=== PATIENT | female | born 1995 | race Two or more races ===

== ENCOUNTER 2024-11-23 14:24 | Outpatient (AMB) | payer MEDICAID, SELFPAY ==
[2024-11-23 14:46] VITALS: BP 134/93; PULSE 101; RESP 18; TEMP 37.1; O2SAT 98; BMI 40.1
--- NOTE | 2024-11-23 14:46 | OBCLNT_ITS ---
Vital Signs 11/23/24 14:46 Height 1.52 m Height Method Stated Weight 92.703 kg Weight Measurement Method Standing Scale BMI 40.1 BP 134/93 H Blood Pressure Source Automatic Cuff Blood Pressure Location Left Upper Arm Position Sitting Respiration 18 Pulse 101 H Pulse Source Monitor Temp 98.7 F Temp Source Oral Pulse Oximetry (%) 98 Oxygen Delivery Method Room Air Allergies/Home Meds Allergies & Medications Allergies No Known Allergies Allergy (Verified 11/23/24 14:48) Medication Reconciliation ondansetron 4 mg disintegrating tablet 4 mg PO Q6H PRN nausea and vomiting 30 days #120 tabs 11/23/24 [Rx] vitamins no.68-iron 28 mg-folate no.6 1 mg-dha 400 mg capsule (Prenate Enhance) 1 cap PO QDAY 90 days #90 caps 11/23/24 [Rx] Intake Visit Data Collection New Patient or Established: Established Patient (seen at [facility] within 3 years) Reason for Visit:: INITIAL CARE Seen by Clinical Staff ONLY (RN/MA): No Baseball Club Manager Required: No Do You Feel Safe at Home: Yes Authorities Contacted: N/A PCP or OBGYN visit in last 3 months: Yes Hx Now: Yes Are you currently on any form of Control: No Last menstrual period: 09/18/24 Pain Present Currently: No Pain Scale Used: [place]/Numerical Pain scale:: 0 Smoking Status Smoking Status: Never smoker Questionnaires Covid-19 Vaccine Questionnaire Has patient been vacinated for Covid-19 Have you been vacinated for Covid-19: No PHQ-9 PHQ-2 Over the last 2 weeks, how often have you been bothered by any of the following problems? 1. Little interest or pleasure in doing things: not at all 2. Feeling down, depressed, or hopeless: not at all Total score: 0 PHQ-9 3. Trouble falling or staying asleep, or sleeping too much: Not at all 4. Feeling tired or having little energy: Not at all 5. Poor appetite or overeating: Not at all 6. Feeling bad about yourself - or that you are a failure or have let yourself or your family down: Not at all 7. Trouble concentrating on things, such as reading the newspaper or watching television: Not at all 8. Moving or speaking so slowly that other people could have noticed? - Or the opposite - being so fidgety or restless that you have been moving around a lot more than usual: not at all 9. Thoughts that you would be better off or of hurting yourself in some way: Not at all Total score: 0 Source: Developed by Drs. Jason Jeffery, Amy Cali, Pernell Gerber and colleagues, with an educational panchito from [employer]. 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 at Home: Yes Past Medical History Past Medical History Have you ever been diagnosed with any of the following: Neurological Problems Cerebrovascular Accident (CVA): No Transient Ischemic Attacks (TIA): No Dementia: No Alzheimer's Disease: No Parkinson's Disease: No Brain Tumor: No Guillain-[place] Syndrome: No Cardiology Problems Myocardial Infarction: No Cardiac Arrhythmia: No Atrial Fibrillation: No Angina: No Congestive Heart Failure: No Respiratory Problems Chronic Obstructive Pulmonary Disease (COPD): No Asthma: No Bronchitis: No Emphysema: No Pneumonia: No Pulmonary Fibrosis: No Hx Cough: No Cough: No Wheezing: No Chest Deformities: No Smoking: No Smoking Cessation Counseling: No Smoking Exposure: No Tobacco Use: No Stomache/Intestinal Problems Liver Cancer: No Hepatitis: No Colorectal Cancer: No Obesity: Yes Genital/Urinary Problems Renal Disease: No Reproductive Problems Breast Cancer: No Endometriosis: No Pelvic Inflammatory Disease: No Previous Pregnancies: Yes (G1 C1 SEP 10 due to macrosomia) Uterine Prolapse: No Musculoskeletal Problems Bone Cancer: No Carpal Tunnel Syndrome: No Head,Eye,Nose,Throat Problems Cataracts: No Glaucoma: No Retinal Detachment: No Macular Degeneration: No Chronic Ear Infections: Yes Eye Prosthesis: No Endocrine Problems Diabetes Mellitus Type 1: No Diabetes Mellitus Type 2: No Blood Problems Sickle Cell Disease: No Other Problems Hospitalization: No Down Syndrome: No Developmental Delay: No Shingles: No Falls: No Blood Transfusions: No Blood Transfusion Reaction: No Anesthesia Reactions: No Organ Transplant: No Chemotherapy: No Radiation Therapy: No Hyperbaric Therapy: No MRSA: No VRSA: No Vancomycin-Resistant Enterococci: No Human Immunodeficiency Virus (HIV): No Chicken Pox: No Measles: No Mumps: No Rubella (Kazakh Measles): No Pertussis: No Clostridium Difficile: No Cancer: No Cervical Cancer: No Lung Cancer: No Surgical History Carotid Endarterectomy: No Coronary Artery Bypass Graft: No Valve Replacement: No Hysterectomy: No Pacemaker: No Thyroidectomy: No History of Present Illness HPI Sharon Veloz, a 29-year-old , presents to establish care. Her last menstrual period was on September 18, consistent with an estimated gestational age of 9 weeks and 3 days. She reports experiencing nausea throughout the day but denies vomiting. The patient is currently taking vitamins. Patient has a significant obstetrical history of one previous delivery in 2023, which was complicated by readmission through the emergency room for headache. She subsequently developed congestive heart failure and was treated for acute hypoxic respiratory failure secondary to fluid overload, possible heart failure, and possible cardiomyopathy. Currently, she denies any shortness of breath or other complaints related to her previous complications. OB Initial Visit Menstrual History Menstrual reliability: definite Flow: normal Menstrual regularity: regular Monthly: Yes Age at menarche: 13 On control pills at conception: No Date of positive home test: 10/18/24 Associated symptoms (LMP): Reports nausea Other symptoms: HEADACHES OB History : 2 Para: 1 # of Living Children: 1 Delivery History 1st : Child's name: THOMAS date: 09/11/23 sex: female Gestational age at delivery (weeks): 40 Delivery type: History of depression before or after : No Infection History & Risk Evaluation History of STDs: none Genetic Screening & History Genetic Screening/Teratology Counseling - Includes patient, baby's father, or anyone in either family with: 1. Patient's age 35 years or older as of estimated date of delivery: No 2. Thalassemia ([place] Citizen, Slovenian, Mediterranean, or Background); MCV less than 80: No 3. Neural Tube Defect (Meningomyelocele, Spina Bifida, or Anencephaly): No 4. Congenital Heart Defect: No 5. Down Syndrome: No 6. Jon-Sachs (Ashkenazi Baptism, Cajun, [place]ic [place]): No 7. Olena Disease (Ashkenazi Baptism): No 8. Familial Dysautonomia (Ashkenazi Baptism): No 9. Sickle Cell Disease or Trait (): No 10. Hemophilia or other blood disorders: No 11. Muscular Dystrophy: No 12. Cystic Fibrosis: No 13. [place]'s Chorea: No 14. Mental Retardation/Autism: No 15. Other inherited genetic or chromosomal disorder: No 16. Maternal Metabolic Disorder (EG,TYPE 1 Diabetes, PKU): No 17. Patient or baby's father had a child with defects not listed above: No 18. Recurrent loss or a stillbirth: No 19. Medications (including supplements, vitamins, herbs or otc drugs)/illicit/recreational drugs/alcohol since last menstrual period: No 20. Any other: No Infection History 1. Live with someone with TB or exposed to TB: No 2. Rash or viral illness since last menstrual period: No 3. Hepatitis B,C: No Other (see comments) Source: [employer] Review of Systems Review of Systems Systems Reviewed: All systems reviewed, normal except as documented Gastrointestinal Gastrointestinal: Reports nausea Exam General Limitations: no limitations General Appearance: alert, in no apparent distress, comfortable, cooperative, healthy appearing, well developed and well groomed Chest Chest inspection: Present normal inspection and symmetric chest wall rise Abdominal Abdominal exam: Present soft and normal bowel sounds Neuro Neurological exam: Present alert, oriented X3 and CN II-XII intact Psych Psychiatric exam: Present normal affect and normal mood Assessment & Plan Diagnosis / Problem List (1) Maternal care for low transverse scar from previous delivery: Status: Acute Assessment and Plan: 29-year-old at 8 weeks 1 day gestation by ultrasound (LMP 09/18/2024). Viable intrauterine confirmed with strong heartbeat visualized. Patient reports nausea without vomiting. History of previous delivery in 2023 complicated by readmission for headache, congestive heart failure, acute hypoxic respiratory failure secondary to fluid overload, and pos sible cardiomyopathy. - vitamin prescription - Antiemetic prescription for as-needed use - Initial lab orders - Formal ultrasound scheduled for better measurements - Follow-up appointment in 2 weeks - Next appointment scheduled for 11/29/2024 at 1:00 PM (2) History of poor outcome: Status: Acute (3) Cardiomyopathy: Status: Acute Office Procedures OB Clinic LOC & Office Proc's Nursing/Assessment Patient Status: Established Patient OB Clinic Nursing Assessment: Medication Reconciliation, Update PMH in EMR and Vital Signs OB Clinic Coordination of Care: Complex Care and Chronic Disease 1-5, Consent,records obtained, informed consent, Education Simp Pt/Fam, Lab and Imaging orders and Staff clarify orders Established Patient Charge Established Patient Point Assignment: 100 Established Patient Point Charge: EP Level 3 (80-115) Bedside Ultrasounds US Transabdominal >14 weeks at bedside: Yes
== END 2024-11-23 14:59 | disposition home or self-care (01) ==
LOC: HODSOBC 14:24
PROVIDERS: Supervising Provider Obstetrics & Gynecology; Visit Provider Obstetrics & Gynecology
DX: O09.291 Supervision of pregnancy with other poor reproductive or obstetric history, first trimester (principal); Z3A.08 8 weeks gestation of pregnancy; O34.211 Maternal care for low transverse scar from previous cesarean delivery; O99.411 Diseases of the circulatory system complicating pregnancy, first trimester; I42.9 Cardiomyopathy, unspecified; Z87.59 Personal history of other complications of pregnancy, childbirth and the puerperium
CPT/HCPCS: 76805; 99213; G0463

== ENCOUNTER → 2024-12-02 | Outpatient (CLI) | payer MEDICAID, SELFPAY ==
--- NOTE | 2024-12-02 15:52 | XR_ITS ---
Examination: Complete OB ultrasound, less than 14 weeks, transabdominal Date and time of exam: December 02, 2024 1614 hrs. Indications: Pelvic cramping today Technique: Obstetrical ultrasound images less than 14 weeks performed via transabdominal imaging Findings: A normal shaped single intrauterine gestation is present in the uterus. Uterine body mass 3.8 x 3.8 cm Uterus 11.8 cm pole 3.9 cm corresponding to 10 weeks 5 day gestational age Cardiac motion 173 BPM Ultrasonographic survey of visible and placental structures unremarkable. Amniotic fluid volume appears appropriate for this estimated gestational age. Right ovary 2.7 cm arterial flow small follicles Left ovary 2.4 cm arterial flow 15 mm follicle Impression: Viable intrauterine gestation 10 weeks 5 days.
== END | disposition home or self-care (01) ==
PROVIDERS: PCP Family Medicine; Referring Provider Obstetrics & Gynecology; Visit Provider Obstetrics & Gynecology
DX: O20.0 Threatened abortion (principal); Z3A.10 10 weeks gestation of pregnancy
CPT/HCPCS: 76801

== ENCOUNTER 2024-12-22 10:39 | Outpatient (AMB) | payer MEDICAID, SELFPAY ==
--- NOTE | 2024-12-22 10:49 | OBCLNT_ITS ---
Vital Signs 12/22/24 10:50 Height 1.52 m Height Method Stated Weight 91.342 kg Weight Measurement Method Standing Scale BMI 39.5 BP 128/83 Blood Pressure Source Automatic Cuff Blood Pressure Location Left Upper Arm Position Sitting Respiration 18 Pulse 98 Pulse Source Monitor Temp 97.2 F Temp Source Oral Pulse Oximetry (%) 97 Oxygen Delivery Method Room Air Allergies/Home Meds Allergies & Medications Allergies No Known Allergies Allergy (Verified 12/22/24 10:51) Medication Reconciliation ondansetron 4 mg disintegrating tablet 4 mg PO Q6H PRN nausea and vomiting 30 days #120 tabs 11/23/24 [Rx Confirmed 12/22/24] vitamins no.68-iron 28 mg-folate no.6 1 mg-dha 400 mg capsule (Prenate Enhance) 1 cap PO QDAY 90 days #90 caps 11/23/24 [Rx Confirmed 12/22/24] Intake Visit Data Collection New Patient or Established: Established Patient (seen at [facility] within 3 years) Reason for Visit:: obc Seen by Clinical Staff ONLY (RN/MA): No Product Support Engineer Required: No Do You Feel Safe at Home: Yes Authorities Contacted: N/A PCP or OBGYN visit in last 3 months: Yes Date of Last PCP or OBGYN visit: 11/23/24 Hx Now: Yes Are you currently on any form of Control: No Pain Present Currently: No Pain Scale Used: [place]/Numerical Pain scale:: 0 Smoking Status Smoking Status: Never smoker Questionnaires Covid-19 Vaccine Questionnaire Has patient been vacinated for Covid-19 Have you been vacinated for Covid-19: Yes PHQ-9 PHQ-2 Over the last 2 weeks, how often have you been bothered by any of the following problems? 1. Little interest or pleasure in doing things: not at all 2. Feeling down, depressed, or hopeless: not at all Total score: 0 PHQ-9 3. Trouble falling or staying asleep, or sleeping too much: Not at all 4. Feeling tired or having little energy: Not at all 5. Poor appetite or overeating: Not at all 6. Feeling bad about yourself - or that you are a failure or have let yourself or your family down: Not at all 7. Trouble concentrating on things, such as reading the newspaper or watching television: Not at all 8. Moving or speaking so slowly that other people could have noticed? - Or the opposite - being so fidgety or restless that you have been moving around a lot more than usual: not at all 9. Thoughts that you would be better off or of hurting yourself in some way: Not at all Total score: 0 If you checked off any problems, how difficult have these problems made it for you to do your work, take care of things at home, or get along with other people?: not difficult at all Source: Developed by Drs. Jason Jeffery, Amy Cali, Pernell Gerber and colleagues, with an educational panchito from [employer]. Depression screen completed yes Social History Living Situation History Marital Status: Lives With: Family Housing: House Housing Other:: pt lives with mom Tobacco History Smoking Status: Never smoker Second Hand Smoke Exposure: No Alcohol History Alcohol Intake: Never Alcohol Intake Frequency: holidays/special occasions only Domestic Abuse History Do You Feel Safe at Home: Yes Past Medical History Past Medical History Have you ever been diagnosed with any of the following: Neurological Problems Cerebrovascular Accident (CVA): No Transient Ischemic Attacks (TIA): No Dementia: No Alzheimer's Disease: No Parkinson's Disease: No Brain Tumor: No Guillain-[place] Syndrome: No Cardiology Problems Myocardial Infarction: No Cardiac Arrhythmia: No Atrial Fibrillation: No Angina: No Congestive Heart Failure: No Respiratory Problems Chronic Obstructive Pulmonary Disease (COPD): No Asthma: No Bronchitis: No Emphysema: No Pneumonia: No Pulmonary Fibrosis: No Hx Cough: No Cough: No Wheezing: No Chest Deformities: No Smoking: No Smoking Cessation Counseling: No Smoking Exposure: No Tobacco Use: No Stomache/Intestinal Problems Liver Cancer: No Hepatitis: No Colorectal Cancer: No Obesity: Yes Genital/Urinary Problems Renal Disease: No Reproductive Problems Breast Cancer: No Endometriosis: No Pelvic Inflammatory Disease: No Previous Pregnancies: Yes (G1 C1 SEP 10 due to macrosomia) Uterine Prolapse: No Musculoskeletal Problems Bone Cancer: No Carpal Tunnel Syndrome: No Head,Eye,Nose,Throat Problems Cataracts: No Glaucoma: No Retinal Detachment: No Macular Degeneration: No Chronic Ear Infections: Yes Eye Prosthesis: No Endocrine Problems Diabetes Mellitus Type 1: No Diabetes Mellitus Type 2: No Blood Problems Sickle Cell Disease: No Other Problems Hospitalization: No Down Syndrome: No Developmental Delay: No Shingles: No Falls: No Blood Transfusions: No Blood Transfusion Reaction: No Anesthesia Reactions: No Organ Transplant: No Chemotherapy: No Radiation Therapy: No Hyperbaric Therapy: No MRSA: No VRSA: No Vancomycin-Resistant Enterococci: No Human Immunodeficiency Virus (HIV): No Chicken Pox: No Measles: No Mumps: No Rubella ([place] Measles): No Pertussis: No Clostridium Difficile: No Cancer: No Cervical Cancer: No Lung Cancer: No Surgical History Carotid Endarterectomy: No Coronary Artery Bypass Graft: No Valve Replacement: No Hysterectomy: No Pacemaker: No Thyroidectomy: No Review of Systems Gastrointestinal Gastrointestinal: Reports nausea Care OB Visit Log OB Flowsheet Initial Weight: Not Recorded Date -?-?-?-?-?-?-?-?-?-?-?-?- EGA Weight Edema CTX Effacement BP Fundal ht Pres Dilation Effacement Station Visit Note Alb Glu FHR Mov 12/22/24 -?-?-?-?-?-?-?-?-?-?-?-?- 13w 4d 91.342 kg absent absent 128/83 14 unknown Doing well today, no sab complaints. VS stable, lungs clear, no c/o difficult resp. NOPT not done. MFM sono pending. NIPT,SMA and CF today, sab precaution discussed. advised patient to call [facility] for appointment, RTC 4 week with OB for care Doing well today, no sab com plaints. VS stable, lungs clear, no c/o difficult resp. NOPT not done. MFM sono pending. NIPT,SMA and CF today, sab precaution discussed. advised patient to call [facility] for appointment, RTC 4 week with OB for care. Labs reviewed Doing well today, no sab com plaints. preg verification VS stable, lungs clear, no c/o difficult resp. NOPT not done. MFM sono pending. NIPT,SMA and CF today, sab precaution discussed. advised patient to call [facility] for appointment, RTC 4 week with OB for care. Labs reviewed 1 46 DEENA Calculator Estimated Delivery Date Method Current WG Current Estimate 06/25/25 LMP (Certain) 13w 4d Assessment & Plan Diagnosis / Problem List (1) Encounter for supervision of high risk in second trimester, antepartum: Status: Acute Plan preg verification, sab precaution, redraw NIPT,SMA and CF, call [facility] to schedule MFM appointment, rtc 4 week with OB for care Additional Plan Follow Up: 4 Weeks ([facility]) Office Procedures OB Clinic LOC & Office Proc's Nursing/Assessment Patient Status: Established Patient OB Clinic Nursing Assessment: BP Monitoring, Medication Reconciliation, Update PMH in EMR and Vital Signs OB Clinic Coordination of Care: Consent,records obtained, informed consent, Education Simp Pt/Fam, Lab and Imaging orders and Staff clarify orders Special Needs: Heart tones Established Patient Charge Established Patient Point Assignment: 120 Established Patient Point Charge: EP Level 4 (120-155)
[2024-12-22 10:50] VITALS: BP 128/83; PULSE 98; RESP 18; TEMP 36.2; O2SAT 97; BMI 39.5
== END 2024-12-22 11:00 | disposition home or self-care (01) ==
LOC: HODSOBC 10:39
PROVIDERS: PCP Obstetrics & Gynecology; Referring Provider Obstetrics & Gynecology; Supervising Provider Obstetrics & Gynecology; Visit Provider Obstetrics & Gynecology
DX: O09.291 Supervision of pregnancy with other poor reproductive or obstetric history, first trimester (principal); O34.219 Maternal care for unspecified type scar from previous cesarean delivery; Z3A.13 13 weeks gestation of pregnancy; Z87.59 Personal history of other complications of pregnancy, childbirth and the puerperium
CPT/HCPCS: 81001; 99214; G0463

== ENCOUNTER 2025-01-28 09:12 | Outpatient (AMB) | payer MEDICAID, SELFPAY ==
[2025-01-28 09:21] VITALS: BP 131/85; PULSE 84; RESP 17; TEMP 36.7; O2SAT 98; BMI 40.5
--- NOTE | 2025-01-28 09:21 | OBCLNT_ITS ---
Vital Signs 01/28/25 09:21 Height 1.52 m Height Method Stated Weight 93.61 kg Weight Measurement Method Standing Scale BMI 40.5 BP 131/85 H Blood Pressure Source Automatic Cuff Blood Pressure Location Right Upper Arm Position Sitting Respiration 17 Pulse 84 Pulse Source Monitor Temp 98.0 F Temp Source Temporal Artery Scan Pulse Oximetry (%) 98 Oxygen Delivery Method Room Air Allergies/Home Meds Allergies & Medications Allergies No Known Allergies Allergy (Verified 01/28/25 09:23) Medication Reconciliation ondansetron 4 mg disintegrating tablet 4 mg PO Q6H PRN nausea and vomiting 30 days #120 tabs 11/23/24 [Rx Confirmed 01/28/25] vitamins no.68-iron 28 mg-folate no.6 1 mg-dha 400 mg capsule (Prenate Enhance) 1 cap PO QDAY 90 days #90 caps 11/23/24 [Rx Confirmed 01/28/25] Intake Visit Data Collection New Patient or Established: Established Patient (seen at [facility] within 3 years) Reason for Visit:: OBC Seen by Clinical Staff ONLY (RN/MA): No Char Belt Operator Required: No Do You Feel Safe at Home: Yes Authorities Contacted: N/A PCP or OBGYN visit in last 3 months: Yes Date of Last PCP or OBGYN visit: 12/22/24 Hx Now: Yes Are you currently on any form of Control: No Pain Present Currently: No Pain Scale Used: [place]/Numerical Pain scale:: 0 Smoking Status Smoking Status: Never smoker Questionnaires Covid-19 Vaccine Questionnaire Has patient been vacinated for Covid-19 Have you been vacinated for Covid-19: No PHQ-9 PHQ-2 Over the last 2 weeks, how often have you been bothered by any of the following problems? 1. Little interest or pleasure in doing things: not at all 2. Feeling down, depressed, or hopeless: not at all Total score: 0 PHQ-9 3. Trouble falling or staying asleep, or sleeping too much: Not at all 4. Feeling tired or having little energy: Not at all 5. Poor appetite or overeating: Not at all 6. Feeling bad about yourself - or that you are a failure or have let yourself or your family down: Not at all 7. Trouble concentrating on things, such as reading the newspaper or watching television: Not at all 8. Moving or speaking so slowly that other people could have noticed? - Or the opposite - being so fidgety or restless that you have been moving around a lot more than usual: not at all 9. Thoughts that you would be better off or of hurting yourself in some way: Not at all Total score: 0 If you checked off any problems, how difficult have these problems made it for you to do your work, take care of things at home, or get along with other people?: not difficult at all Source: Developed by Drs. Jason Jeffery, Amy Cali, Pernell Gerber and colleagues, with an educational panchito from [employer]. 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 Patient has a history of possible cardiomyopathy after her previous . Denies DELGADILLO, VC, and epigastric pain. - Meggan Veloz is a 29-year-old at 18 weeks and 6 days gestation presenting for routine visit. - Patient reports feeling movements here and there - Provider notes these should become more prominent in the next 2 weeks - Denies current nausea or vomiting - Denies any heart symptoms, shortness of breath, or weakness - History of possible cardiomyopathy after previous - Previously referred to cardiology and maternal- medicine for evaluation - Patient confirms taking vitamins as prescribed - Upcoming appointment scheduled for 20-week ultrasound on February 08, 2025 Care OB Visit Log OB Flowsheet Initial Weight: Not Recorded Date -?-?-?-?-?-?-?-?-?-?-?-?- EGA Weight BP Alb Glu CTX Pres Fundal ht FHR Mov Dilation Station Effacement Hx Notes Visit Note 12/22/24 -?-?-?-?-?-?-?-?-?-?-?-?- 13w 4d 91.342 kg 128/83 absent unknown 14 146 Doing well today, no sab complaints. VS stable, lungs clear, no c/o difficult resp. NOPT not done. MFM sono pending. NIPT,SMA and CF today, sab precaution discussed. advised patient to call [facility] for appointment, RTC 4 week with OB for care Doing well today, no sab com plaints. VS stable, lungs clear, no c/o difficult resp. NOPT not done. MFM sono pending. NIPT,SMA and CF today, sab precaution d iscussed. advised patient to call [facility] for appointment, RTC 4 week with OB for care. Labs reviewed Doing well today, no sab com plaints. preg verification VS stable, lungs clear, no c/o difficult resp. NOPT not done. MFM sono pending. NIPT,SMA and CF today, sab precaution discussed. advised patient to call [facility] for appointment, RTC 4 week with OB for care. Labs reviewed 01/28/25 -?-?-?-?-?-?-?-?-?-?-?-?- 18w 6d 93.61 kg 131/85 at 18w6d, presents for routine care. Reports movement ?here and there.? No DELGADILLO/VC/epigastric pain. Denies SOB, weakness, or cardiac symptoms. History of possible cardiomyopathy; previously referred to cardiology and [facility]. Currently asymptomatic. labs from 11/19/24 within normal limits. NIPT redrawn. FHT 150 bpm. Anatomy ultrasound scheduled for 02/08/25. Plan: Redraw NIPT and send to lab. Print proof of . Encourage movement monitoring. Continue vitamins. Follow-up after anatomy scan. Routine care to continue. heart ton es: 150 bpm. Laboratory, Imaging, and Diagnostic Test Results - Date: 11/19/2024 - Hepatitis B: Negative - Hepatitis C: Negative - RPR: Non-reactive - Rubella: Immune - Blood group: O-positive - Antibody screen: Negative - HIV: Negative - Gonorrhea: Negative - Chlamydia: Negative - Ultrasound (10 weeks 5 days): Confirms gestational age and viability DEENA Calculator Estimated Delivery Date Method Current WG Current Estimate 06/25/25 LMP (Certain) 19w 4d Exam General General Appearance: alert, in no apparent distress and healthy appearing Head Head exam: atraumatic Neck Neck exam: Present normal inspection and trachea midline Chest Chest inspection: Present normal inspection and symmetric chest wall rise External exam: Present normal external exam; Absent tenderness Neuro Neurological exam: Present oriented X3 Psych Psychiatric exam: Present normal affect and normal mood Office Procedures OB Clinic LOC & Office Proc's Nursing/Assessment Patient Status: Established Patient OB Clinic Nursing Assessment: Medication Reconciliation, Update PMH in EMR and Vital Signs OB Clinic Coordination of Care: Complex Care and Chronic Disease 1-5, Consent,records obtained, informed consent, Education Simp Pt/Fam and Staff clarify orders Special Needs: Heart tones Established Patient Charge Established Patient Point Assignment: 115 Established Patient Point Charge: EP Level 3 (80-115) Assessment & Plan Diagnosis / Problem List (1) Encounter for supervision of high risk in second trimester, antepartum: Status: Acute (2) Cardiomyopathy: Status: Acute (3) History of poor outcome: Status: Acute (4) Maternal care for low transverse scar from previous delivery: Status: Acute Plan Problem List - , 18 weeks and 6 days - Possible cardiomyopathy Assessment 29-year-old at 18 weeks 6 days gestation presenting for routine visit. Patient has a history of possible cardiomyopathy after previous . Initial labs from 11/19/2024 show hepatitis B and C negative, RPR non-reactive, rubella immune, blood type O positive with negative antibody screen, HIV negative, and gonorrhea/chlamydia negative. NiPT was redrawn due to unreported results. Ultrasound at 10 weeks 5 days confirmed gestational age and viability. Patient reports feeling movement here and there and denies current nausea, vomiting, shortness of breath, or weakness. heart rate auscultated at 150 bpm, which is within normal limits. Plan - Provide new lab order for genetic testing (NiPT) - Print proof of - Attend scheduled 20-week ultrasound at [facility] on February 08, 2025 - Continue vitamins - Follow up in 4 weeks This format is not applicable for this patient visit. The patient, Meggan Veloz, is 18 weeks and 6 days , which is less than 20 weeks gestation. Additionally, this appears to be a routine visit, not an initial visit. The provided format is intended for patients with gestational age greater than 20 weeks who are not on their initial visit.
== END 2025-01-28 09:57 | disposition home or self-care (01) ==
LOC: HODSOBC 09:12
PROVIDERS: PCP Obstetrics & Gynecology; Referring Provider Obstetrics & Gynecology; Supervising Provider Obstetrics & Gynecology; Visit Provider Obstetrics & Gynecology
DX: O09.292 Supervision of pregnancy with other poor reproductive or obstetric history, second trimester (principal); O34.211 Maternal care for low transverse scar from previous cesarean delivery; O09.892 Supervision of other high risk pregnancies, second trimester; O99.412 Diseases of the circulatory system complicating pregnancy, second trimester; Z3A.18 18 weeks gestation of pregnancy; I42.9 Cardiomyopathy, unspecified
CPT/HCPCS: 99213; G0463

== ENCOUNTER 2025-02-28 09:14 | Outpatient (AMB) | payer MEDICAID, SELFPAY ==
[2025-02-28 09:24] VITALS: BP 130/84; PULSE 79; RESP 17; TEMP 36.7; O2SAT 98; BMI 40.1
--- NOTE | 2025-02-28 09:24 | OBCLNT_ITS ---
Vital Signs 02/28/25 09:24 Height 1.55 m Height Method Measured Weight 96.388 kg Weight Measurement Method Standing Scale BMI 40.1 BP 130/84 Blood Pressure Source Automatic Cuff Blood Pressure Location Right Upper Arm Position Sitting Respiration 17 Pulse 79 Pulse Source Monitor Temp 98.0 F Temp Source Temporal Artery Scan Pulse Oximetry (%) 98 Oxygen Delivery Method Room Air Allergies/Home Meds Allergies & Medications Allergies No Known Allergies Allergy (Verified 02/28/25 09:25) Medication Reconciliation vitamins no.68-iron 28 mg-folate no.6 1 mg-dha 400 mg capsule (Prenate Enhance) 1 cap PO QDAY 90 days #90 caps 11/23/24 [Rx Confirmed 02/28/25] Intake Visit Data Collection New Patient or Established: Established Patient (seen at [facility] within 3 years) Reason for Visit:: OBC Consent obtained for Telemed Visit: No Seen by Clinical Staff ONLY (RN/MA): No Health Care Sanitary Technician Required: No Do You Feel Safe at Home: Yes Authorities Contacted: N/A PCP or OBGYN visit in last 3 months: Yes Date of Last PCP or OBGYN visit: 01/28/25 Hx Now: Yes Are you currently on any form of Control: No Pain Present Currently: No Pain Scale Used: [place]/Numerical Pain scale:: 0 Smoking Status Smoking Status: Never smoker Questionnaires Covid-19 Vaccine Questionnaire Has patient been vacinated for Covid-19 Have you been vacinated for Covid-19: No PHQ-9 PHQ-2 Over the last 2 weeks, how often have you been bothered by any of the following problems? 1. Little interest or pleasure in doing things: not at all PHQ-9 8. Moving or speaking so slowly that other people could have noticed? - Or the opposite - being so fidgety or restless that you have been moving around a lot more than usual: not at all Source: Developed by Drs. Jason Jeffery, Amy Cali, Pernell Gerebr and colleagues, with an educational panchito from [employer]. 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 Past Medical History: No Hx Neurological Disorders, No Hx Breast Cancer, No Hx Cardiac Disorders, No Hx Cancer, No Hx Blood Disorders, Yes Hx Gastrointestinal Disorders, No Hx Renal Disease, No Hx Diabetes Mellitus Type 1, No Hx Diabetes Mellitus Type 2, No Hx Tubal Ligation and No Hx Hysterectomy Care OB Visit Log OB Flowsheet Initial Weight: Not Recorded Date -?-?-?-?-?-?-?-?-?-?-?-?- EGA Weight BP Alb Glu CTX Pres Fundal ht FHR Mov Dilation Station Effacement Hx Notes Visit Note 12/22/24 -?-?-?-?-?-?-?-?-?-?-?-?- 13w 4d 91.342 kg 128/83 absent unknown 14 146 Doing well today, no sab complaints. VS stable, lungs clear, no c/o difficult resp. NOPT not done. MFM sono pending. NIPT,SMA and CF today, sab precaution discussed. advised patient to call [facility] for appointment, RTC 4 week with OB for care Doing well today, no sab com plaints. VS stable, lungs clear, no c/o difficult resp. NOPT not done. MFM sono pending. NIPT,SMA and CF today, sab precaution discussed. advised patient to call [facility] for appointment, RTC 4 week with OB for care. Labs reviewed Doing well today, no sab com plaints. preg verification VS stable, lungs clear, no c/o difficult resp. NOPT not done. MFM sono pending. NIPT,SMA and CF today, sab precaution discussed. advised patient to call [facility] for appointment, RTC 4 week with OB for care. Labs reviewed 01/28/25 -?-?-?-?-?-?-?-?-?-?-?-?- 18w 6d 93.61 kg 131/85 at 18w6d, presents for routine care. Reports movement ?here and there.? No DELGADILLO/VC/epigastric pain. Denies SOB, weakness, or cardiac symptoms. History of possible cardi omyopathy; previously referred to cardiology and [facility]. Currently asymptomatic. labs from 11/19/24 within normal limits. NIPT redrawn. FHT 150 bpm. Anatomy ultrasound scheduled for 02/08/25. Plan: Redraw NIPT and send to lab. Print proof of . Encourage movement monitoring. Continue vitamins. Follow-up after anatomy scan. Routine care to continue. heart ton es: 150 bpm. Laboratory, Imaging, and Diagnostic Test Results - Date: 11/19/2024 - Hepatitis B: Negative - Hepatitis C: Negative - RPR: Non-reactive - Rubella: Immune - Blood group: O-positive - Antibody screen: Negative - HIV: Negative - Gonorrhea: Negative - Chlamydia: Negative - Ultrasound (10 weeks 5 days): Confirms gestational age and viability 02/28/25 -?-?-?-?-?-?-?-?-?-?-?-?- 23w 2d 96.388 kg 130/84 absent unknown 24 135 active , 23w2d. 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 Alex 11/26). FHR 135, no CTX, reports FM. Plan: f/u with cardiology, glucose test today, MFM f/u at [facility] 03/10, routine OB f/u in 4 weeks. DEENA Calculator Estimated Delivery Date Method Current WG Current Estimate 06/25/25 LMP (Certain) 23w 6d Office Procedures OB Clinic LOC & Office Proc's Nursing/Assessment Patient Status: Established Patient OB Clinic Nursing Assessment: Medication Reconciliation, Update PMH in EMR and Vital Signs OB Clinic Coordination of Care: Complex Care and Chronic Disease 1-5, Consent,records obtained, informed consent, Education Simp Pt/Fam and 4+ Authorizations needed Special Needs: Heart tones Established Patient Charge Established Patient Point Assignment: 130 Established Patient Point Charge: EP Level 4 (120-155) Assessment & Plan Diagnosis / Problem List (1) Encounter for supervision of high risk in second trimester, antepartum: Status: Acute (2) Cardiomyopathy: Status: Acute (3) History of poor outcome: Status: Acute (4) Maternal care for low transverse scar from previous delivery: Status: Acute Plan Problem List - , 23 weeks and 2 days - Peripartum cardiomyopathy Assessment 29-year-old at 23 weeks 2 days gestation presenting for care. Patient has a significant history of possible cardiomyopathy during her last admission, necessitating cardiology and maternal- medicine referrals for co-management. Cardiology consultation is still pending since the referral on November 26. heart rate auscultated at 135 bpm, which is within normal limits. Patient denies contractions and reports movement. Glucose tolerance test is due today for gestational diabetes screening. Plan - Follow up with cardiology - referral sent to Dr. David Alex's office, awaiting appointment - Complete glucose test for gestational diabetes screening - Attend scheduled appointment at [facility] on the - Return for follow-up in 4 weeks
== END 2025-02-28 10:36 | disposition home or self-care (01) ==
LOC: HODSOBC 09:14
PROVIDERS: PCP Obstetrics & Gynecology; Referring Provider Obstetrics & Gynecology; Supervising Provider Obstetrics & Gynecology; Visit Provider Obstetrics & Gynecology
DX: O09.892 Supervision of other high risk pregnancies, second trimester (principal); O90.3 Peripartum cardiomyopathy; O09.292 Supervision of pregnancy with other poor reproductive or obstetric history, second trimester; O34.211 Maternal care for low transverse scar from previous cesarean delivery; Z3A.23 23 weeks gestation of pregnancy; Z87.59 Personal history of other complications of pregnancy, childbirth and the puerperium
CPT/HCPCS: 99214; G0463

== ENCOUNTER 2025-03-29 14:06 | Outpatient (AMB) | payer MEDICAID, SELFPAY ==
[2025-03-29 14:48] VITALS: BP 130/87; PULSE 94; RESP 17; TEMP 36.5; O2SAT 97; BMI 40.8
--- NOTE | 2025-03-29 14:48 | AMB.OBVISIT ---
Vital Signs 03/29/25 14:48 Height 1.55 m Height Method Measured Weight 98.033 kg Weight Measurement Method Standing Scale BMI 40.8 BP 130/87 H Blood Pressure Source Automatic Cuff Blood Pressure Location Right Upper Arm Position Sitting Respiration 17 Pulse 94 Pulse Source Monitor Temp 97.7 F Temp Source Temporal Artery Scan Pulse Oximetry (%) 97 Oxygen Delivery Method Room Air Allergies/Home Meds Allergies & Medications Allergies No Known Allergies Allergy (Verified 03/29/25 14:48) Medication Reconciliation vitamins no.68-iron 28 mg-folate no.6 1 mg-dha 400 mg capsule (Prenate Enhance) 1 cap PO QDAY 90 days #90 caps 11/23/24 [Rx Confirmed 03/29/25] blood sugar diagnostic (Blood Glucose Test strips) #100 ea 03/21/25 [Rx Confirmed 03/29/25] blood-glucose meter #1 ea 03/21/25 [Rx Confirmed 03/29/25] lancets 21 gauge #100 ea 03/21/25 [Rx Confirmed 03/29/25] Intake Visit Data Collection New Patient or Established: Established Patient (seen at [facility] within 3 years) Reason for Visit:: [facility] Consent obtained for Telemed Visit: No Seen by Clinical Staff ONLY (RN/MA): No Echo Vascular Technologist Required: No Do You Feel Safe at Home: Yes Authorities Contacted: N/A PCP or OBGYN visit in last 3 months: Yes Date of Last PCP or OBGYN visit: 02/28/25 Hx Now: Yes Are you currently on any form of Control: No Pain Present Currently: No Pain Scale Used: [place]/Numerical Pain scale:: 0 Smoking Status Smoking Status: Never smoker Questionnaires Covid-19 Vaccine Questionnaire Has patient been vacinated for Covid-19 Have you been vacinated for Covid-19: No PHQ-9 PHQ-2 Over the last 2 weeks, how often have you been bothered by any of the following problems? 1. Little interest or pleasure in doing things: not at all PHQ-9 3. Trouble falling or staying asleep, or sleeping too much: Not at all 4. Feeling tired or having little energy: Not at all 5. Poor appetite or overeating: Not at all 6. Feeling bad about yourself - or that you are a failure or have let yourself or your family down: Not at all 7. Trouble concentrating on things, such as reading the newspaper or watching television: Not at all 8. Moving or speaking so slowly that other people could have noticed? - Or the opposite - being so fidgety or restless that you have been moving around a lot more than usual: not at all 9. Thoughts that you would be better off or of hurting yourself in some way: Not at all If you checked off any problems, how difficult have these problems made it for you to do your work, take care of things at home, or get along with other people?: not difficult at all Source: Developed by Drs. Jason Jeffery, Amy Cali, Pernell Gerber and colleagues, with an educational panchito from [employer]. 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 VS stable, lungs clear, no c/o difficult resp. NOPT not done. MFM sono pending. NIPT,SMA and CF today, sab precaution discussed. advised patient to call [facility] for appointment, RTC 4 week with OB for care Doing well today, no sab complaints. VS stable, lungs clear, no c/o difficult resp. NOPT not done. MFM sono pending. NIPT,SMA and CF today, sab precaution discussed. advised patient to call [facility] for appointment, RTC 4 week with OB for care. Labs reviewed Doing well today, no sab complaints. preg verification VS stable, lungs clear, no c/o difficult resp. NOPT not done. MFM sono pending. NIPT,SMA and CF today, sab precaution discussed. advised patient to call [facility] for appointment, RTC 4 week with OB for care. Labs reviewed 01/28/25 <del>?</del> 18w 6d 93.61 kg 131/85 at 18w6d, presents for routine care. Reports movement ?here and there.? No DELGADILLO/VC/epigastric pain. Denies SOB, weakness, or cardiac symptoms. History of possible cardiomyopathy; previously referred to cardiology and [facility]. Currently asymptomatic. labs from 11/19/24 within normal limits. NIPT redrawn. FHT 150 bpm. Anatomy ultrasound scheduled for 02/08/25. Plan: Redraw NIPT and send to lab. Print proof of . Encourage movement monitoring. Continue vitamins. Follow-up after anatomy scan. Routine care to continue. heart tones: 150 bpm. Laboratory, Imaging, and Diagnostic Test Results - Date: 11/19/2024 - Hepatitis B: Negative - Hepatitis C: Negative - RPR: Non-reactive - Rubella: Immune - Blood group: O-positive - Antibody screen: Negative - HIV: Negative - Gonorrhea: Negative - Chlamydia: Negative - Ultrasound (10 weeks 5 days): Confirms gestational age and viability 02/28/25 <del>?</del> 23w 2d 96.388 kg 130/84 absent unknown 24 135 active , 23w2d. 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 Alex 11/26). FHR 135, no CTX, reports FM. Plan: f/u with cardiology, glucose test today, MFM f/u at [facility] 03/10, routine OB f/u in 4 weeks. DEENA Calculator Estimated Delivery Date Method Current WG Current Estimate 06/25/25 LMP (Certain) 27w 3d Office Procedures OB Clinic LOC & Office Proc's Nursing/Assessment Patient Status: Established Patient OB Clinic Nursing Assessment: Medication Reconciliation, Update PMH in EMR and Vital Signs OB Clinic Coordination of Care: Complex Care and Chronic Disease 1-5, Consent,records obtained, informed consent, Education Simp Pt/Fam and Results/Orders obtained Special Needs: Heart tones Established Patient Charge Established Patient Point Assignment: 110 Established Patient Point Charge: EP Level 3 (80-115)
== END 2025-03-29 15:42 | disposition home or self-care (01) ==
LOC: HODSOBC 14:06
PROVIDERS: PCP Obstetrics & Gynecology; Referring Provider Obstetrics & Gynecology; Supervising Provider Obstetrics & Gynecology; Visit Provider Obstetrics & Gynecology
DX: Z34.82 Encounter for supervision of other normal pregnancy, second trimester (principal); Z3A.27 27 weeks gestation of pregnancy
CPT/HCPCS: 99213; G0463

== ENCOUNTER 2025-04-12 14:50 | Outpatient (AMB) | payer MEDICAID, SELFPAY ==
[2025-04-12 15:01] VITALS: BP 134/81; PULSE 93; RESP 18; TEMP 36.2; O2SAT 98; BMI 39.9
--- NOTE | 2025-04-12 15:01 | AMB.OBVISIT ---
Vital Signs 04/12/25 15:01 Height 1.55 m Height Method Stated Weight 95.821 kg Weight Measurement Method Standing Scale BMI 39.9 BP 134/81 H Blood Pressure Source Automatic Cuff Blood Pressure Location Left Upper Arm Position Sitting Respiration 18 Pulse 93 Pulse Source Monitor Temp 97.2 F Temp Source Oral Pulse Oximetry (%) 98 Oxygen Delivery Method Room Air Allergies/Home Meds Allergies & Medications Allergies No Known Allergies Allergy (Verified 04/12/25 15:02) Medication Reconciliation vitamins no.68-iron 28 mg-folate no.6 1 mg-dha 400 mg capsule (Prenate Enhance) 1 cap PO QDAY 90 days #90 caps 11/23/24 [Rx Confirmed 04/12/25] blood sugar diagnostic (Blood Glucose Test strips) #100 ea 03/21/25 [Rx Confirmed 04/12/25] blood-glucose meter #1 ea 03/21/25 [Rx Confirmed 04/12/25] lancets 21 gauge #100 ea 03/21/25 [Rx Confirmed 04/12/25] Intake Visit Data Collection New Patient or Established: Established Patient (seen at [facility] within 3 years) Reason for Visit:: OBC Seen by Clinical Staff ONLY (RN/MA): No Steel Estimator Required: No Do You Feel Safe at Home: Yes Authorities Contacted: N/A PCP or OBGYN visit in last 3 months: Yes Date of Last PCP or OBGYN visit: 03/29/25 Hx Now: Yes Are you currently on any form of Control: No Pain Present Currently: No Pain Scale Used: [place]/Numerical Pain scale:: 0 Smoking Status Smoking Status: Never smoker Questionnaires Covid-19 Vaccine Questionnaire Has patient been vacinated for Covid-19 Have you been vacinated for Covid-19: Yes PHQ-9 PHQ-2 Over the last 2 weeks, how often have you been bothered by any of the following problems? 1. Little interest or pleasure in doing things: not at all 2. Feeling down, depressed, or hopeless: not at all Total score: 0 PHQ-9 3. Trouble falling or staying asleep, or sleeping too much: Not at all 4. Feeling tired or having little energy: Not at all 5. Poor appetite or overeating: Not at all 6. Feeling bad about yourself - or that you are a failure or have let yourself or your family down: Not at all 7. Trouble concentrating on things, such as reading the newspaper or watching television: Not at all 8. Moving or speaking so slowly that other people could have noticed? - Or the opposite - being so fidgety or restless that you have been moving around a lot more than usual: not at all 9. Thoughts that you would be better off or of hurting yourself in some way: Not at all Total score: 0 If you checked off any problems, how difficult have these problems made it for you to do your work, take care of things at home, or get along with other people?: not difficult at all Source: Developed by Drs. Jason Jeffery, Amy Cali, Pernell Gerber and colleagues, with an educational panchito from [employer]. 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: Past Medical History Past Medical History: No Hx Neurological Disorders, No Hx Breast Cancer, No Hx Cardiac Disorders, No Hx Cancer, No Hx Blood Disorders, Yes Hx Gastrointestinal Disorders, No Hx Renal Disease, No Hx Diabetes Mellitus Type 1, No Hx Diabetes Mellitus Type 2, No Hx Tubal Ligation and No Hx Hysterectomy Care OB Visit Log OB Flowsheet Initial Weight: Not Recorded Date <del>?</del> EGA Weight BP Alb Glu CTX Pres Fundal ht FHR Mov Dilation Station Effacement Hx Notes Visit Note 12/22/24 <del>?</del> 13w 4d 91.342 kg 128/83 absent unknown 14 146 Doing well today, no sab complaints. VS stable, lungs clear, no c/o difficult resp. NOPT not done. MFM sono pending. NIPT,SMA and CF today, sab precaution discussed. advised patient to call [facility] for appointment, RTC 4 week with OB for care Doing well today, no sab complaints. VS stable, lungs clear, no c/o difficult resp. NOPT not done. MFM sono pending. NIPT,SMA and CF today, sab precaution discussed. advised patient to call [facility] for appointment, RTC 4 week with OB for care. Labs reviewed Doing well today, no sab complaints. preg verification VS stable, lungs clear, no c/o difficult resp. NOPT not done. MFM sono pending. NIPT,SMA and CF today, sab precaution discussed. advised patient to call [facility] for appointment, RTC 4 week with OB for care. Labs reviewed 01/28/25 <del>?</del> 18w 6d 93.61 kg 131/85 at 18w6d, presents for routine care. Reports movement ?here and there.? No DELGADILLO/VC/epigastric pain. Denies SOB, weakness, or cardiac symptoms. History of possible cardiomyopathy; previously referred to cardiology and MFM. Currently asymptomatic. labs from 11/19/24 within normal limits. NIPT redrawn. FHT 150 bpm. Anatomy ultrasound scheduled for 02/08/25. Plan: Redraw NIPT and send to lab. Print proof of . Encourage movement monitoring. Continue vitamins. Follow-up after anatomy scan. Routine care to continue. heart tones: 150 bpm. Laboratory, Imaging, and Diagnostic Test Results - Date: 11/19/2024 - Hepatitis B: Negative - Hepatitis C: Negative - RPR: Non-reactive - Rubella: Immune - Blood group: O-positive - Antibody screen: Negative - HIV: Negative - Gonorrhea: Negative - Chlamydia: Negative - Ultrasound (10 weeks 5 days): Confirms gestational age and viability 02/28/25 <del>?</del> 23w 2d 96.388 kg 130/84 absent unknown 24 135 active , 23w2d. 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 Alex 11/26). FHR 135, no CTX, reports FM. Plan: f/u with cardiology, glucose test today, MFM f/u at [facility] 03/10, routine OB f/u in 4 weeks. 04/12/25 <del>?</del> 29w 3d 95.821 kg 134/81 absent unknown 30 140 active 29w3d with h/o suspected cardiomyopathy (EF 65%), currently ruled out by MFM, and diet-controlled GDM with well-controlled sugars; FHR 166 bpm, normal growth on 04/12 . Plan: Order CBC Alpha for anemia, stop frequent glucose checks (monitor after large/sweet meals only), initiate NSTs per MFM, expedite echo referral with Dr. Alex, RTC in 2 weeks. DEENA Calculator Estimated Delivery Date Method Current WG Current Estimate 06/25/25 LMP (Certain) 29w 5d Office Procedures OB Clinic LOC & Office Proc's Nursing/Assessment Patient Status: Established Patient OB Clinic Nursing Assessment: Medication Reconciliation, Update PMH in EMR and Vital Signs OB Clinic Coordination of Care: Education Complex Pt/Fam, Consent,records obtained, informed consent, Lab and Imaging orders, Results/Orders obtained and Staff clarify orders Special Needs: Heart tones Established Patient Charge Established Patient Point Assignment: 115 Established Patient Point Charge: EP Level 3 (80-115) Assessment & Plan Diagnosis / Problem List (1) Gestational diabetes mellitus: Status: Acute (2) Encounter for supervision of high risk in second trimester, antepartum: Status: Acute (3) Cardiomyopathy: Status: Acute
== END 2025-04-12 15:15 | disposition home or self-care (01) ==
LOC: HODSOBC 14:50
PROVIDERS: Supervising Provider Obstetrics & Gynecology; Visit Provider Obstetrics & Gynecology
DX: O09.893 Supervision of other high risk pregnancies, third trimester (principal); O24.410 Gestational diabetes mellitus in pregnancy, diet controlled; O99.413 Diseases of the circulatory system complicating pregnancy, third trimester; I42.9 Cardiomyopathy, unspecified; Z3A.29 29 weeks gestation of pregnancy
CPT/HCPCS: 99213; G0463

== ENCOUNTER 2025-04-29 13:54 | Outpatient (AMB) | payer MEDICAID, SELFPAY ==
[2025-04-29 14:15] VITALS: BP 132/83; PULSE 91; RESP 18; TEMP 36.6; O2SAT 98; BMI 39.9
--- NOTE | 2025-04-29 14:15 | OBCLNT_ITS ---
Vital Signs 04/29/25 14:15 Height 1.55 m Height Method Stated Weight 95.765 kg Weight Measurement Method Standing Scale BMI 39.9 BP 132/83 H Blood Pressure Source Automatic Cuff Blood Pressure Location Left Upper Arm Position Sitting Respiration 18 Pulse 91 Pulse Source Monitor Temp 97.8 F Temp Source Oral Pulse Oximetry (%) 98 Oxygen Delivery Method Room Air Allergies/Home Meds Allergies & Medications Allergies No Known Allergies Allergy (Verified 06/01/25 11:08) Medication Reconciliation vitamins no.68-iron 28 mg-folate no.6 1 mg-dha 400 mg capsule (Prenate Enhance) 1 cap PO QDAY 90 days #90 caps 11/23/24 [Rx Confirmed 06/01/25] blood sugar diagnostic (Blood Glucose Test strips) #100 ea 03/21/25 [Rx Confirmed 06/01/25] blood-glucose meter #1 ea 03/21/25 [Rx Confirmed 06/01/25] lancets 21 gauge #100 ea 03/21/25 [Rx Confirmed 06/01/25] blood sugar diagnostic (FreeStyle Test strips) #100 ea 04/19/25 [Rx Confirmed 06/01/25] Intake Visit Data Collection New Patient or Established: Established Patient (seen at [facility] within 3 years) Reason for Visit:: CARE Seen by Clinical Staff ONLY (RN/MA): No Uranium Processing Supervisor Required: No Do You Feel Safe at Home: Yes Authorities Contacted: N/A PCP or OBGYN visit in last 3 months: Yes Hx Now: Yes Are you currently on any form of Control: No Pain Present Currently: No Pain Scale Used: [place]/Numerical Pain scale:: 0 Smoking Status Smoking Status: Never smoker Questionnaires Covid-19 Vaccine Questionnaire Has patient been vacinated for Covid-19 Have you been vacinated for Covid-19: No PHQ-9 PHQ-2 Over the last 2 weeks, how often have you been bothered by any of the following problems? 1. Little interest or pleasure in doing things: not at all 2. Feeling down, depressed, or hopeless: not at all Total score: 0 PHQ-9 3. Trouble falling or staying asleep, or sleeping too much: Not at all 4. Feeling tired or having little energy: Not at all 5. Poor appetite or overeating: Not at all 6. Feeling bad about yourself - or that you are a failure or have let yourself or your family down: Not at all 7. Trouble concentrating on things, such as reading the newspaper or watching television: Not at all 8. Moving or speaking so slowly that other people could have noticed? - Or the opposite - being so fidgety or restless that you have been moving around a lot more than usual: not at all 9. Thoughts that you would be better off or of hurting yourself in some way: Not at all Total score: 0 Source: Developed by Drs. Jason Jeffery, Amy Cali, Pernell Gerber and colleagues, with an educational panchito from [employer]. 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: Past Medical History Past Medical History: No Hx Neurological Disorders, No Hx Breast Cancer, No Hx Cardiac Disorders, No Hx Cancer, No Hx Blood Disorders, Yes Hx Gastrointestinal Disorders, No Hx Renal Disease, No Hx Diabetes Mellitus Type 1, No Hx Diabetes Mellitus Type 2, No Hx Tubal Ligation and No Hx Hysterectomy Care OB Visit Log OB Flowsheet Initial Weight: Not Recorded Date -?-?-?-?-?-?-?-?-?-?-?-?- EGA Weight BP Alb Glu CTX Pres Fundal ht FHR Mov Dilation Station Effacement Hx Notes Visit Note 12/22/24 -?-?-?-?-?-?-?-?-?-?-?-?- 13w 4d 91.342 kg 128/83 absent unknown 14 146 Doing well today, no sab complaints. VS stable, lungs clear, no c/o difficult resp. NOPT not done. MFM sono pending. NIPT,SMA and CF today, sab precaution discussed. advised patient to call [facility] for appointment, RTC 4 week with OB for care Doing well today, no sab com plaints. VS stable, lungs clear, no c/o difficult resp. NOPT not done. MFM sono pending. NIPT,SMA and CF today, sab precaution discussed. advised patient to call [facility] for appointment, RTC 4 week with OB for care. Labs reviewed Doing well today, no sab com plaints. preg verification VS stable, lungs clear, no c/o difficult resp. NOPT not done. MFM sono pending. NIPT,SMA and CF today, sab precaution discussed. advised patient to call [facility] for appointment, RTC 4 week with OB for care. Labs reviewed 01/28/25 -?-?-?-?-?-?-?-?-?-?-?-?- 18w 6d 93.61 kg 131/85 at 18w6d, presents for routine care. Reports movement ?here and there.? No DELGADILLO/VC/epigastric pain. Denies SOB, weakness, or cardiac symptoms. History of possible cardiomyopathy; previously referred to cardiology and MFM. Currently asymptomatic. labs from 11/19/24 within normal limits. NIPT redrawn. FHT 150 bpm. Anatomy ultrasound scheduled for 02/08/25. Plan: Redraw NIPT and send to lab. Print proof of . Encourage movement monitoring. Continue vitamins. Follow-up after anatomy scan. Routine care to continue. heart ton es: 150 bpm. Laboratory, Imaging, and Diagnostic Test Results - Date: 11/19/2024 - Hepatitis B: Negative - Hepatitis C: Negative - RPR: Non-reactive - Rubella: Immune - Blood group: O-positive - Antibody screen: Negative - HIV: Negative - Gonorrhea: Negative - Chlamydia: Negative - Ultrasound (10 weeks 5 days): Confirms gestational age and viability 02/28/25 -?-?-?-?-?-?-?-?-?-?-?-?- 23w 2d 96.388 kg 130/84 absent unknown 24 135 active , 23w2d. 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 Alex 11/26). FHR 135, no CTX, reports FM. Plan: f/u with cardiology, glucose test today, MFM f/u at [facility] 03/10, routine OB f/u in 4 weeks. 04/12/25 -?-?-?-?-?-?-?-?-?-?-?-?- 29w 3d 95.821 kg 134/81 absent unknown 30 140 active 29w3d with h/o suspected cardiomyopathy (EF 65%), currently ruled out by MFM, and diet-controlled GDM with well-controlled sugars; FHR 166 bpm, normal growth on 04/12 [place]. Plan: Order CBC Alpha for anemia, stop frequent glucose checks (monitor after large/sweet meals only), initiate NSTs per MFM, expedite echo referral with Dr. Alex, RTC in 2 weeks. 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 appointments: - [facility] - Awaiting call from [facility] for follow-up ultrasound - Work status: - Currently employed at [employer] - Considering maternity leave due to high-risk Plan - Schedule follow-up appointment in 2 we eks - Prescribe cream for eczema on hands - Call tree specialist on Friday afternoon to clarify echo results - Patient to call [facility] on Friday for next ultrasound appointment - Patient to inquire about maternity luzmaria ve options with Social Security office - Continue monitoring heart rate ( noted as 131, normal) - Await [facility] recom mendation for section timing (potentially 38-39 weeks) DEENA Calculator Estimated Delivery Date Method Current WG Current Estimate 06/25/25 LMP (Certain) 37w 0d Assessment & Plan Diagnosis / Problem List (1) Gestational diabetes mellitus: Status: Acute (2) Encounter for supervision of high risk in second trimester, antepartum: Status: Acute (3) History of poor outcome: Status: Acute Plan Problem List - , 31 weeks and 6 days - Eczema Assessment at 31 weeks 6 days gestation, presenting for routine visit. Pending echocardiogram scheduled for Friday to evaluate cardiac function. Third trimester labs reveal hemoglobin of 11.4 g/dL and non-reactive RPR. Patient reports active movement. 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 heart rate auscultated at 131 bpm, within normal range. Plan - Schedule follow-up appointment in 2 weeks - Prescribe cream for eczema on hands - Call tree specialist on Friday afternoon to clarify echo results - Patient to call [facility] on Friday for next ultrasound appointment - Patient to inquire about maternity leave options with Social Security office - Continue monitoring heart rate (noted as 131, normal) - Await [facility] recommendation for section timing (potentially 38-39 weeks) 1. Progress Reviewed gestational age, growth, and heart rate. Planned frequent visits (every 2 weeks until 36 weeks, then weekly). 2. Instructed patient to monitor movements and report decreases immediately. 3. Testing Counseled on routine third-trimester labs per guidelines. Discussed potential need for ultrasound or monitoring based on risk factors. 4. Preeclampsia Precaution Educated on preeclampsia signs: severe headache, vision changes, right upper quadrant pain, sudden swelling. Advised urgent reporting of symptoms and discussed blood pressure monitoring if high risk. 5. Labor Precautions Reviewed labor signs: regular contractions, pelvic pressure, back pain, bleeding, or fluid leakage. Instructed to seek immediate care for these symptoms. 6. Lifestyle and Delivery Preparation Reinforced vitamins, nutrition, and safe activity. Discussed plan, pain management, and . Advised on labor preparation (e.g., hospital bag) and expectations. 7. Psychosocial Support Assessed emotional well-being and offered resources for mental health or parenting support.
== END 2025-04-29 14:28 | disposition home or self-care (01) ==
LOC: HODSOBC 13:54
PROVIDERS: Supervising Provider Obstetrics & Gynecology; Visit Provider Obstetrics & Gynecology
DX: O09.893 Supervision of other high risk pregnancies, third trimester (principal); O24.410 Gestational diabetes mellitus in pregnancy, diet controlled; O99.713 Diseases of the skin and subcutaneous tissue complicating pregnancy, third trimester; L30.9 Dermatitis, unspecified; Z3A.31 31 weeks gestation of pregnancy; Z87.59 Personal history of other complications of pregnancy, childbirth and the puerperium
CPT/HCPCS: 99214; G0463

== ENCOUNTER 2025-05-09 08:17 | Outpatient (AMB) | payer MEDICAID, SELFPAY ==
[2025-05-09 08:30] VITALS: BP 129/79; PULSE 97; RESP 19; TEMP 36.6; O2SAT 98; BMI 40.1
--- NOTE | 2025-05-09 08:30 | AMB.OBVISIT ---
Vital Signs 05/09/25 08:30 Height 1.55 m Height Method Measured Weight 96.388 kg Weight Measurement Method Standing Scale BMI 40.1 BP 129/79 Blood Pressure Source Automatic Cuff Blood Pressure Location Right Upper Arm Position Supine Respiration 19 Pulse 97 Pulse Source Monitor Temp 97.8 F Temp Source Temporal Artery Scan Pulse Oximetry (%) 98 Oxygen Delivery Method Room Air Allergies/Home Meds Allergies & Medications Allergies No Known Allergies Allergy (Verified 07/06/25 09:06) Intake Visit Data Collection New Patient or Established: Established Patient (seen at [facility] within 3 years) Reason for Visit:: OB FOLLOW UP Seen by Clinical Staff ONLY (RN/MA): No Do You Feel Safe at Home: Yes Authorities Contacted: N/A PCP or OBGYN visit in last 3 months: Yes Hx Now: Yes Are you currently on any form of Control: No Smoking Status Smoking Status: Never smoker Questionnaires PHQ-9 PHQ-2 Over the last 2 weeks, how often have you been bothered by any of the following problems? 1. Little interest or pleasure in doing things: not at all PHQ-9 8. Moving or speaking so slowly that other people could have noticed? - Or the opposite - being so fidgety or restless that you have been moving around a lot more than usual: not at all Source: Developed by Drs. Jason Jeffery, Amy Cali, Pernell Gerber and colleagues, with an educational panchito from [employer]. 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 Patient has a history of prior delivery. No contractions, LOF, VB and reports good FM. Denies DELGADILLO, VC, and epigastric pain. Assessment & Plan Diagnosis / Problem List (1) Supervision of high risk , unspecified, third trimester: Status: Acute Plan Problem List - , 32 weeks and 4 days gestation - History of section - History of heart failure - Gestational diabetes mellitus Assessment 32-week 4-day 1 para 1 with scheduled repeat section. Patient has a history of heart failure following previous section, with recent negative cardiology workup and adequate ejection fraction. Gestational diabetes is well controlled on diet alone with stable glucose levels. Patient is due for Group B Streptococcus screening. heart rate is 142 beats per minute, which is normal, with reported activity and absence of contractions. Plan - Repeat section scheduled for 06-21-2025 - GBS swab at next appt - Follow-up appointment scheduled for 2 weeks - Ultrasound at [facility] next month - Next appointment to be scheduled after ultrasound results
== END 2025-05-09 09:12 | disposition home or self-care (01) ==
LOC: HODSOBC 08:17
PROVIDERS: Supervising Provider Obstetrics & Gynecology; Visit Provider Obstetrics & Gynecology
DX: O09.293 Supervision of pregnancy with other poor reproductive or obstetric history, third trimester (principal); O34.219 Maternal care for unspecified type scar from previous cesarean delivery; O09.893 Supervision of other high risk pregnancies, third trimester; O24.410 Gestational diabetes mellitus in pregnancy, diet controlled; Z3A.32 32 weeks gestation of pregnancy
CPT/HCPCS: 99214; G0463

== ENCOUNTER 2025-05-27 11:08 | Outpatient (AMB) | payer MEDICAID, SELFPAY ==
--- NOTE | 2025-05-27 11:16 | OBCLNT_ITS ---
Vital Signs 05/27/25 11:19 Height 1.55 m Height Method Stated Weight 94.858 kg Weight Measurement Method Standing Scale BMI 39.4 BP 133/88 H Blood Pressure Source Automatic Cuff Blood Pressure Location Left Upper Arm Position Sitting Respiration 16 Pulse 73 Pulse Source Monitor Temp 98.2 F Temp Source Oral Pulse Oximetry (%) 97 Oxygen Delivery Method Room Air Allergies/Home Meds Allergies & Medications Allergies No Known Allergies Allergy (Verified 06/21/25 10:17) Medication Reconciliation vitamins no.68-iron 28 mg-folate no.6 1 mg-dha 400 mg capsule (Prenate Enhance) 1 cap PO QDAY 90 days #90 caps 11/23/24 [Rx Confirmed 06/21/25] acetaminophen 325 mg tablet 650 mg (2 x 325 mg) PO Q6HR PRN Patient rated pain of 3 #60 tabs 06/23/25 [Rx] docusate sodium 100 mg capsule 100 mg PO QDAY #60 caps 06/23/25 [Rx] enoxaparin 40 mg/0.4 mL subcutaneous syringe (Lovenox) 40 mg (0.4 mL) subcut Q24H #4 mL 06/23/25 [Rx] hydrocodone 5 mg-acetaminophen 325 mg tablet 2 tab PO Q6HR PRN Patient rated pain 9 to 10 #25 tabs 06/23/25 [Rx] ibuprofen 400 mg tablet 800 mg (2 x 400 mg) PO Q8HR PRN Pain Scale 4-6 (Moderate #60 tabs 06/23/25 [Rx] Intake Visit Data Collection New Patient or Established: Established Patient (seen at [facility] within 3 years) Reason for Visit:: OBC Seen by Clinical Staff ONLY (RN/MA): No Street Commissioner Required: No Do You Feel Safe at Home: Yes Authorities Contacted: N/A PCP or OBGYN visit in last 3 months: Yes Date of Last PCP or OBGYN visit: 05/23/25 Hx Now: Yes Are you currently on any form of Control: No Pain Present Currently: No Pain Scale Used: [place]/Numerical Pain scale:: 0 Smoking Status Smoking Status: Never smoker Questionnaires Covid-19 Vaccine Questionnaire Has patient been vacinated for Covid-19 Have you been vacinated for Covid-19: Yes PHQ-9 PHQ-2 Over the last 2 weeks, how often have you been bothered by any of the following problems? 1. Little interest or pleasure in doing things: not at all 2. Feeling down, depressed, or hopeless: not at all Total score: 0 PHQ-9 3. Trouble falling or staying asleep, or sleeping too much: Not at all 4. Feeling tired or having little energy: Not at all 5. Poor appetite or overeating: Not at all 6. Feeling bad about yourself - or that you are a failure or have let yourself or your family down: Not at all 7. Trouble concentrating on things, such as reading the newspaper or watching television: Not at all 8. Moving or speaking so slowly that other people could have noticed? - Or the opposite - being so fidgety or restless that you have been moving around a lot more than usual: not at all 9. Thoughts that you would be better off or of hurting yourself in some way: Not at all Total score: 0 If you checked off any problems, how difficult have these problems made it for you to do your work, take care of things at home, or get along with other people?: not difficult at all Source: Developed by Drs. Jason Jeffery, Amy Cali, Pernell Gerber and colleagues, with an educational panchito from [employer]. 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 Medical History Past Medical History: No Hx Neurological Disorders, No Hx Breast Cancer, No Hx Cardiac Disorders, No Hx Cancer, No Hx Blood Disorders, Yes Hx Gastrointestinal Disorders, No Hx Renal Disease, No Hx Diabetes Mellitus Type 1, No Hx Diabetes Mellitus Type 2, No Hx Tubal Ligation and No Hx Hysterectomy Care OB Visit Log OB Flowsheet Initial Weight: Not Recorded Date -?-?-?-?-?-?-?-?-?-?-?-?- EGA Weight BP Alb Glu CTX Pres Fundal ht FHR Mov Dilation Station Effacement Hx Notes Visit Note 12/22/24 -?-?-?-?-?-?-?-?-?-?-?-?- 13w 4d 91.342 kg 128/83 absent unknown 14 146 Doing well today, no sab complaints. VS stable, lungs clear, no c/o difficult resp. NOPT not done. MFM sono pending. NIPT,SMA and CF today, sab precaution discussed. advised patient to call [facility] for appointment, RTC 4 week with OB for care Doing well today, no sab com plaints. VS stable, lungs clear, no c/o difficult resp. NOPT not done. MFM sono pending. NIPT,SMA and CF today, sab precaution discussed. advised patient to call [facility] for appointment, RTC 4 week with OB for care. Labs reviewed Doing well today, no sab com plaints. preg verification VS stable, lungs clear, no c/o difficult resp. NOPT not done. MFM sono pending. NIPT,SMA and CF today, sab precaution discussed. advised patient to call [facility] for appointment, RTC 4 week with OB for care. Labs reviewed 01/28/25 -?-?-?-?-?-?-?-?-?-?-?-?- 18w 6d 93.61 kg 131/85 at 18w6d, presents for routine care. Reports movement ?here and there.? No DELGADILLO/VC/epigastric pain. Denies SOB, weakness, or cardiac symptoms. History of possible cardiomyopathy; previously referred to cardiology and M. Currently asymptomatic. labs from 11/19/24 within normal limits. NIPT redrawn. FHT 150 bpm. Anatomy ultrasound scheduled for 02/08/25. Plan: Redraw NIPT and send to lab. Print proof of . Encourage movement monitoring. Continue vitamins. Follow-up after anatomy scan. Routine care to continue. heart ton es: 150 bpm. Laboratory, Imaging, and Diagnostic Test Results - Date: 11/19/2024 - Hepatitis B: Negative - Hepatitis C: Negative - RPR: Non-reactive - Rubella: Immune - Blood group: O-positive - Antibody screen: Negative - HIV: Negative - Gonorrhea: Negative - Chlamydia: Negative - Ultrasound (10 weeks 5 days): Confirms gestational age and viability 02/28/25 -?-?-?-?-?-?-?-?-?-?-?-?- 23w 2d 96.388 kg 130/84 absent unknown 24 135 active , 23w2d. 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 Alex 11/26). FHR 135, no CTX, reports FM. Plan: f/u with cardiology, glucose test today, MFM f/u at [facility] 03/10, routine OB f/u in 4 weeks. 04/12/25 -?-?-?-?-?-?-?-?-?-?-?-?- 29w 3d 95.821 kg 134/81 absent unknown 30 140 active 29w3d with h/o suspected cardiomyopathy (EF 65%), currently ruled out by MFM, and diet-controlled GDM with well-controlled sugars; FHR 166 bpm, normal growth on 04/12 US. Plan: Order CBC Alpha for anemia, stop frequent glucose checks (monitor after large/sweet meals only), initiate NSTs per MFM, expedite echo referral with Dr. Alex, RTC in 2 weeks. 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 appointments: - [facility] [place] [facility] [place] - Awaiting call from [facility] for follow-up ultrasound - Work status: - Currently employed at [employer] - Considering maternity leave due to high-risk Plan - Schedule follow-up appointment in 2 we eks - Prescribe cream for eczema on hands - Call beta tester on Friday afternoon to clarify echo results - Patient to call [facility] on Friday for next ultrasound appointment - Patient to inquire about maternity luzmaria ve options with Social Security office - Continue monitoring heart rate ( noted as 131, normal) - Await [facility] recom mendation for section timing (potentially 38-39 weeks) 05/27/25 -?-?-?-?-?-?-?-?-?-?-?-?- 35w 6d 94.858 kg 133/88 absent unknown 36 155 active - She reports no contractions at this time. - Baby remains active with normal heart rate of 147 beats per minute. - She continues working and requests wor k disability documentation. - She denies any acute concerns or changes in her condition since l ast visit. - Scheduled section for June 21 at 12:30 PM - Patient to check in at 10:00 AM for pr e-operative preparation including IV placement - Work excuse letter to be provided from today's date through 2 months post- section - Group B streptococcus culture to be pe rformed at next visit 06/13/25 -?-?-?-?-?-?-?-?-?-?-?-?- 38w 2d 96.842 kg 126/84 absent unknown 38 142 active - Meggan is presenting for a visit at 38 weeks and 2 days gestation. - She is scheduled for a repeat section next week on June 21, 2025 at 12:30 PM. - She reports being ready for the scheduled procedure. - Repeat section scheduled for June 21, 2025 at 12:30 PM - [facility] - NPO (nothing by mouth) for 8 hours bef ore procedure - Clinician to verify exact procedure ti me and communicate to patient - Follow-up at hospital for delivery DEENA Calculator Estimated Delivery Date Method Current WG Current Estimate 06/25/25 LMP (Certain) 41w 0d Office Procedures OBC Clinic LOC & Office Proc's Nursing/Assessment Patient Status: Established Patient OB Clinic Nursing Assessment: Medication Reconciliation, Update PMH in EMR and Vital Signs OB Clinic Coordination of Care: Consent,records obtained, informed consent, Education Simp Pt/Fam, Lab and Imaging orders, Results/Orders obtained and Staff clarify orders Special Needs: Heart tones Established Patient Charge Established Patient Point Assignment: 110 Established Patient Point Charge: EP Level 3 (80-115) Assessment & Plan Diagnosis / Problem List (1) Cardiomyopathy: Status: Acute (2) History of poor outcome: Status: Acute (3) CHF (congestive heart failure): Status: Acute (4) Supervision of high risk , unspecified, third trimester: Status: Acute
[2025-05-27 11:19] VITALS: BP 133/88; PULSE 73; RESP 16; TEMP 36.8; O2SAT 97; BMI 39.4
== END 2025-05-27 11:39 | disposition home or self-care (01) ==
LOC: HODSOBC 11:08
PROVIDERS: Supervising Provider Obstetrics & Gynecology; Visit Provider Obstetrics & Gynecology
DX: O09.893 Supervision of other high risk pregnancies, third trimester (principal); O99.413 Diseases of the circulatory system complicating pregnancy, third trimester; I50.9 Heart failure, unspecified; I42.9 Cardiomyopathy, unspecified; Z3A.35 35 weeks gestation of pregnancy
CPT/HCPCS: 99213; G0463

== ENCOUNTER 2025-06-01 10:48 | Outpatient (AMB) | payer MEDICAID, SELFPAY ==
--- NOTE | 2025-06-01 11:04 | OBCLNT_ITS ---
Vital Signs 06/01/25 11:07 Height 1.55 m Height Method Stated Weight 95.821 kg Weight Measurement Method Standing Scale BMI 39.9 BP 129/85 H Blood Pressure Source Automatic Cuff Blood Pressure Location Left Upper Arm Position Sitting Respiration 18 Pulse 85 Pulse Source Monitor Temp 97.2 F Temp Source Oral Pulse Oximetry (%) 98 Oxygen Delivery Method Room Air Allergies/Home Meds Allergies & Medications Allergies No Known Allergies Allergy (Verified 07/06/25 09:06) Intake Visit Data Collection New Patient or Established: Established Patient (seen at [facility] within 3 years) Reason for Visit:: OBC / GBS Seen by Clinical Staff ONLY (RN/MA): No 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 1. Little interest or pleasure in doing things: not at all 2. Feeling down, depressed, or hopeless: not at all Total score: 0 PHQ-9 3. Trouble falling or staying asleep, or sleeping too much: Not at all 4. Feeling tired or having little energy: Not at all 5. Poor appetite or overeating: Not at all 6. Feeling bad about yourself - or that you are a failure or have let yourself or your family down: Not at all 8. Moving or speaking so slowly that other people could have noticed? - Or the opposite - being so fidgety or restless that you have been moving around a lot more than usual: not at all 9. Thoughts that you would be better off or of hurting yourself in some way: Not at all If you checked off any problems, how difficult have these problems made it for you to do your work, take care of things at home, or get along with other people?: not difficult at all Source: Developed by Drs. Jason L. Jose DAmy contreras Kurt Kroenke a nd colleagues, with an educational panchito from [employer]. 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 - She has a history of heart failure after her last section. - Has been evaluated by cardiology with negative workup and adequate ejection fraction. - Patient has gestational diabetes that is now well controlled on diet alone. - She reports her blood sugars are holding up well and everything is good. - Baby is active with no contractions reported. - She denies any current concerns or symptoms. Exam General General Appearance: alert, in no apparent distress and healthy appearing Head Head exam: atraumatic Neck Neck exam: Present normal inspection and trachea midline Chest Chest inspection: Present normal inspection and symmetric chest wall rise External exam: Present normal external exam; Absent tenderness Neuro Neurological exam: Present oriented X3 Psych Psychiatric exam: Present normal affect and normal mood Office Procedures OBC Clinic LOC & Office Proc's Nursing/Assessment Patient Status: Established Patient OB Clinic Nursing Assessment: Medication Reconciliation, Update PMH in EMR and Vital Signs OB Clinic Coordination of Care: Consent,records obtained, informed consent, Education Simp Pt/Fam, Lab and Imaging orders, Results/Orders obtained and Staff clarify orders Special Needs: Heart tones Miscellaneous Interventions: Pelvic Comp w/OB cult Established Patient Charge Established Patient Point Assignment: 125 Established Patient Point Charge: EP Level 4 (120-155) Assessment & Plan Diagnosis / Problem List (1) Encounter for routine follow-up: Status: Acute Plan Problem List - , 36 weeks and 4 days gestation - History of section - History of heart failure - Gestational diabetes mellitus Assessment 36-week 4-day 1 para 1 with scheduled repeat section. Patient has a history of heart failure following previous section, with recent negative cardiology workup and adequate ejection fraction. Gestational diabetes is well controlled on diet alone with stable glucose levels. Patient is due for Group B Streptococcus screening. heart rate is 142 beats per minute, which is normal, with reported activity and absence of contractions. Plan - Repeat section scheduled for 06-21-2025 - GBS swab performed (patient self-swabbed) - Follow-up appointment scheduled for one week - Ultrasound at [facility] scheduled for the - Next appointment to be scheduled after ultrasound results 1. Progress Reviewed gestational age at 36 weeks and 4 days, growth, and heart rate of 142 bpm (normal). Patient scheduled for repeat section on 06-21-2025. Planned weekly visits until delivery. 2. Instructed patient to monitor movements and report decreases immediately. Patient reports baby is active with no contractions. 3. Testing Performed Group B Streptococcus (GBS) screening with patient self-swabbing. Ultrasound scheduled at [facility] on 06-08-2025 for weight assessment. 4. Preeclampsia Precaution Educated on preeclampsia signs: severe headache, vision changes, right upper quadrant pain, sudden swelling. Advised urgent reporting of symptoms and discussed blood pressure monitoring if high risk. 5. Labor Precautions Reviewed labor signs: regular contractions, pelvic pressure, back pain, bleeding, or fluid leakage. Instructed to seek immediate care for these symptoms. 6. Lifestyle and Delivery Preparation Patient's gestational diabetes well controlled on diet alone with stable glucose levels. Reinforced continued dietary management and safe activity. Discussed scheduled delivery plan given history of heart failure after previous section. Patient has completed cardiology clearance with negative workup and adequate ejection fraction. 7. Psychosocial Support Assessed emotional well-being and offered resources for mental health or parenting support.
[2025-06-01 11:07] VITALS: BP 129/85; PULSE 85; RESP 18; TEMP 36.2; O2SAT 98; BMI 39.9
== END 2025-06-01 11:19 | disposition home or self-care (01) ==
LOC: HODSOBC 10:48
PROVIDERS: Supervising Provider Obstetrics & Gynecology; Visit Provider Obstetrics & Gynecology
DX: O09.293 Supervision of pregnancy with other poor reproductive or obstetric history, third trimester (principal); O34.219 Maternal care for unspecified type scar from previous cesarean delivery; O09.893 Supervision of other high risk pregnancies, third trimester; O24.410 Gestational diabetes mellitus in pregnancy, diet controlled; Z3A.36 36 weeks gestation of pregnancy; Z36.85 Encounter for antenatal screening for Streptococcus B; Z86.79 Personal history of other diseases of the circulatory system
CPT/HCPCS: 99214; G0463

== ENCOUNTER 2025-06-13 11:17 | Outpatient (AMB) | payer MEDICAID, SELFPAY ==
[2025-06-13 11:50] VITALS: BP 126/84; PULSE 80; RESP 16; TEMP 36.2; O2SAT 98; BMI 40.3
--- NOTE | 2025-06-13 11:50 | OBCLNT_ITS ---
Vital Signs 06/13/25 11:50 Height 1.55 m Height Method Stated Weight 96.842 kg Weight Measurement Method Standing Scale BMI 40.3 BP 126/84 Blood Pressure Source Automatic Cuff Blood Pressure Location Left Upper Arm Position Sitting Respiration 16 Pulse 80 Pulse Source Monitor Temp 97.2 F Temp Source Oral Pulse Oximetry (%) 98 Oxygen Delivery Method Room Air Allergies/Home Meds Allergies & Medications Allergies No Known Allergies Allergy (Verified 06/13/25 11:51) Intake Visit Data Collection New Patient or Established: Established Patient (seen at [facility] within 3 years) Reason for Visit:: CARE Seen by Clinical Staff ONLY (RN/MA): No Car Rental Service Attendant Required: No Do You Feel Safe at Home: Yes Authorities Contacted: N/A PCP or OBGYN visit in last 3 months: Yes Hx Now: Yes Are you currently on any form of Control: No Pain Present Currently: No Pain Scale Used: [place]/Numerical Pain scale:: 0 Smoking Status Smoking Status: Never smoker Immunizations Flu Vaccine in the Last 12 Months: Yes Flu Vaccine Exclusion Criteria: Already Received Questionnaires Covid-19 Vaccine Questionnaire Has patient been vacinated for Covid-19 Have you been vacinated for Covid-19: Yes PHQ-9 PHQ-2 Over the last 2 weeks, how often have you been bothered by any of the following problems? 1. Little interest or pleasure in doing things: not at all 2. Feeling down, depressed, or hopeless: not at all Total score: 0 PHQ-9 3. Trouble falling or staying asleep, or sleeping too much: Not at all 4. Feeling tired or having little energy: Not at all 5. Poor appetite or overeating: Not at all 6. Feeling bad about yourself - or that you are a failure or have let yourself or your family down: Not at all 7. Trouble concentrating on things, such as reading the newspaper or watching television: Not at all 8. Moving or speaking so slowly that other people could have noticed? - Or the opposite - being so fidgety or restless that you have been moving around a lot more than usual: not at all 9. Thoughts that you would be better off or of hurting yourself in some way: Not at all Total score: 0 Source: Developed by Drs. Jason L. Jose DAmy rodriguez, Pernell Gerber and colleagues, with an educational panchito from [employer]. 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 Medical History Past Medical History: No Hx Neurological Disorders, No Hx Breast Cancer, No Hx Cardiac Disorders, No Hx Cancer, No Hx Blood Disorders, Yes Hx Gastrointestinal Disorders, No Hx Renal Disease, No Hx Diabetes Mellitus Type 1, No Hx Diabetes Mellitus Type 2, No Hx Tubal Ligation and No Hx Hysterectomy Care OB Visit Log OB Flowsheet Initial Weight: Not Recorded Date -?-?-?-?-?-?-?-?-?-?-?-?- EGA Weight BP Alb Glu CTX Pres Fundal ht FHR Mov Dilation Station Effacement Hx Notes Visit Note 12/22/24 -?-?-?-?-?-?-?-?-?-?-?-?- 13w 4d 91.342 kg 128/83 absent unknown 14 146 Doing well today, no sab complaints. VS stable, lungs clear, no c/o difficult resp. NOPT not done. MFM sono pending. NIPT,SMA and CF today, sab precaution discussed. advised patient to call [facility] for appointment, RTC 4 week with OB for care Doing well today, no sab com plaints. VS stable, lungs clear, no c/o difficult resp. NOPT not done. MFM sono pending. NIPT,SMA and CF today, sab precaution discussed. advised patient to call [facility] for appointment, RTC 4 week with OB for care. Labs reviewed Doing well today, no sab com plaints. preg verification VS stable, lungs clear, no c/o difficult resp. NOPT not done. MFM sono pending. NIPT,SMA and CF today, sab precaution discussed. advised patient to call [facility] for appointment, RTC 4 week with OB for care. Labs reviewed 01/28/25 -?-?-?-?-?-?-?-?-?-?-?-?- 18w 6d 93.61 kg 131/85 at 18w6d, presents for routine care. Reports movement ?here and there.? No [place]GADILLO/VC/epigastric pain. Denies SOB, weakness, or cardiac symptoms. History of possible cardiomyopathy; previously referred to cardiology and MFM. Currently asymptomatic. labs from 11/19/24 within normal limits. NIPT redrawn. FHT 150 bpm. Anatomy ultrasound scheduled for 02/08/25. Plan: Redraw NIPT and send to lab. Print proof of . Encourage movement monitoring. Continue vitamins. Follow-up after anatomy scan. Routine care to continue. heart ton es: 150 bpm. Laboratory, Imaging, and Diagnostic Test Results - Date: 11/19/2024 - Hepatitis B: Negative - Hepatitis C: Negative - RPR: Non-reactive - Rubella: Immune - Blood group: O-positive - Antibody screen: Negative - HIV: Negative - Gonorrhea: Negative - Chlamydia: Negative - Ultrasound (10 weeks 5 days): Confirms gestational age and viability 02/28/25 -?-?-?-?-?-?-?-?-?-?-?-?- 23w 2d 96.388 kg 130/84 absent unknown 24 135 active , 23w2d. 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 Alex 11/26). FHR 135, no CTX, reports FM. Plan: f/u with cardiology, glucose test today, MFM f/u at [facility] 03/10, routine OB f/u in 4 weeks. 04/12/25 -?-?-?-?-?-?-?-?-?-?-?-?- 29w 3d 95.821 kg 134/81 absent unknown 30 140 active 29w3d with h/o suspected cardiomyopathy (EF 65%), currently ruled out by MFM, and diet-controlled GDM with well-controlled sugars; FHR 166 bpm, normal growth on 04/12 . Plan: Order CBC Alpha for anemia, stop frequent glucose checks (monitor after large/sweet meals only), initiate NSTs per MFM, expedite echo referral with Dr. Alex, C in 2 weeks. 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 - She is scheduled for a repeat section next week on June 21, 2025 at 12:30 PM. - She reports being ready for the scheduled procedure. - Repeat section scheduled for June 21, 2025 at 12:30 PM - Patient to arrive [address] [facility] procedure time - NPO (nothing by mouth) for 8 hours bef ore procedure - Clinician to verify exact procedure ti me and communicate to patient - Follow-up at hospital for delivery DEENA Calculator Estimated Delivery Date Method Current WG Current Estimate 06/25/25 LMP (Certain) 38w 2d Office Procedures [facility] Clinic LOC & Office Proc's Nursing/Assessment Patient Status: Established Patient OB Clinic Nursing Assessment: Medication Reconciliation, Update PMH in EMR and Vital Signs OB Clinic Coordination of Care: Complex Care and Chronic Disease 1-5, Consent,records obtained, informed consent, Education Simp Pt/Fam, 1 Ins Authorization, Lab and Imaging orders, Results/Orders obtained and Staff clarify orders Special Needs: Heart tones Established Patient Charge Established Patient Point Assignment: 150 Established Patient Point Charge: EP Level 4 (120-155) Assessment & Plan Diagnosis / Problem List (1) Gestational diabetes mellitus: Status: Acute (2) Maternal care for low transverse scar from previous delivery: Status: Acute Plan Assessment 38-week and 2-day gestation with scheduled repeat section. heart rate is 142 beats per minute, which is within normal limits. Recent ultrasound from [facility] demonstrates appropriate measurements and normal findings. Plan - Repeat section scheduled for June 21, 2025 at 12:30 PM - Patient to arrive 2 hours prior to scheduled procedure time - NPO (nothing by mouth) for 8 hours before procedure - Clinician to verify exact procedure time and communicate to patient - Follow-up at hospital for delivery 1. Progress Reviewed gestational age at 38 weeks and 2 days, growth, and heart rate of 142 bpm which is normal. Patient scheduled for repeat section. 2. Instructed patient to monitor movements and report decreases immediately. 3. Testing Counseled on routine third-trimester labs per guidelines. Discussed potential need for ultrasound or monitoring based on risk factors. 4. Preeclampsia Precaution Educated on preeclampsia signs: severe headache, vision changes, right upper quadrant pain, sudden swelling. Advised urgent reporting of symptoms and discussed blood pressure monitoring if high risk. 5. Labor Precautions Reviewed labor signs: regular contractions, pelvic pressure, back pain, bleeding, or fluid leakage. Instructed to seek immediate care for these symptoms. 6. Lifestyle and Delivery Preparation Reinforced vitamins, nutrition, and safe activity. Discussed plan, pain management, and . Advised on labor preparation (e.g., hospital bag) and expectations. 7. Psychosocial Support Assessed emotional well-being and offered resources for mental health or parenti ng support.
== END 2025-06-13 12:00 | disposition home or self-care (01) ==
PROVIDERS: Supervising Provider Obstetrics & Gynecology; Visit Provider Obstetrics & Gynecology
DX: O09.293 Supervision of pregnancy with other poor reproductive or obstetric history, third trimester (principal); O34.211 Maternal care for low transverse scar from previous cesarean delivery; O09.893 Supervision of other high risk pregnancies, third trimester; O24.410 Gestational diabetes mellitus in pregnancy, diet controlled; Z3A.38 38 weeks gestation of pregnancy
CPT/HCPCS: 99214; G0463

== ENCOUNTER 2025-06-20 14:01 | Outpatient (RCR) | payer MEDICAID, SELFPAY ==
--- NOTE | 2025-05-16 14:09 | XR_ITS ---
Examination: Biophysical profile, ultrasound Date and time of exam: May 16, 2025, 1409 hours INDICATIONS: Diagnosis high risk Technique: Multiple transabdominal sonographic images of the pelvis abdomen obtained. Attention is directed to the breathing movement, gross body movement, amniotic fluid volume and tone. Findings: Amniotic fluid index 19.7 cm Total biophysical profile is 8 of 8. breathing movement is 2. Gross body movement is 2. tone is 2. Qualitative amniotic fluid volume is 2 Impression: Biophysical profile is 8 of 8.
[2025-05-16 14:56] VITALS: BP 118/73; PULSE 74; RESP 16; TEMP 36.9
--- NOTE | 2025-05-19 13:56 | XR_ITS ---
Examination: Biophysical profile, ultrasound Date and time of exam: May 19, 2025, 1359 hours INDICATIONS: Diagnosis high risk Technique: Multiple transabdominal sonographic images of the pelvis abdomen obtained. Attention is directed to the breathing movement, gross body movement, amniotic fluid volume and tone. Findings: Amniotic fluid index 21.5 cm Total biophysical profile is 8 of 8. breathing movement is 2. Gross body movement is 2. tone is 2. Qualitative amniotic fluid volume is 2 Impression: Biophysical profile is 8 of 8.
[2025-05-19 15:10] VITALS: BP 127/71; PULSE 83; RESP 16; TEMP 36.7
--- NOTE | 2025-05-23 14:23 | XR_ITS ---
Examination: Biophysical profile, ultrasound Date and time of exam: 05/23/2025 1427 hrs Technique: Multiple transabdominal sonographic images of the pelvis abdomen obtained. Attention is directed to the breathing movement, gross body movement, amniotic fluid volume and tone. Findings: Amniotic fluid index 12.7 cm Total biophysical profile is 8 of 8. breathing movement is 2. Gross body movement is 2. tone is 2. Qualitative amniotic fluid volume is 2 Impression: Biophysical profile is 8 of 8.
[2025-05-23 14:48] VITALS: BP 117/71; PULSE 91; RESP 16; TEMP 36.9
--- NOTE | 2025-05-26 14:54 | XR_ITS ---
Examination: Biophysical profile, ultrasound Date and time of exam: May 26, 2025, 1520 hours INDICATIONS: Diagnosis high risk , diagnosis gestational diabetes Technique: Multiple transabdominal sonographic images of the pelvis abdomen obtained. Attention is directed to the breathing movement, gross body movement, amniotic fluid volume and tone. Findings: Amniotic fluid index 20.1 cm Total biophysical profile is 8 of 8. breathing movement is 2. Gross body movement is 2. tone is 2. Qualitative amniotic fluid volume is 2 Impression: Biophysical profile is 8 of 8.
[2025-05-26 16:16] VITALS: BP 124/76; PULSE 78; RESP 18
--- NOTE | 2025-05-30 13:52 | XR_ITS ---
Examination: Biophysical profile, ultrasound Date and time of exam: May 30, 2025, 1417 hours INDICATIONS: Diagnosis high risk Technique: Multiple transabdominal sonographic images of the pelvis abdomen obtained. Attention is directed to the breathing movement, gross body movement, amniotic fluid volume and tone. Findings: Amniotic fluid index 20 cm Total biophysical profile is 8 of 8. breathing movement is 2. Gross body movement is 2. tone is 2. Qualitative amniotic fluid volume is 2 Impression: Biophysical profile is 8 of 8.
[2025-05-30 15:25] VITALS: BP 122/73; PULSE 88; RESP 18
--- NOTE | 2025-06-02 13:56 | XR_ITS ---
Examination: Biophysical profile, ultrasound Date and time of exam: June 02, 2025, 1412 hours INDICATIONS: Diagnosis high risk , diagnosis gestational diabetes Technique: Multiple transabdominal sonographic images of the pelvis abdomen obtained. Attention is directed to the breathing movement, gross body movement, amniotic fluid volume and tone. Findings: Amniotic fluid index 23.4 cm Total biophysical profile is 8 of 8. breathing movement is 2. Gross body movement is 2. tone is 2. Qualitative amniotic fluid volume is 2 Impression: Biophysical profile is 8 of 8.
[2025-06-02 15:21] VITALS: BP 118/76; PULSE 74; RESP 16; TEMP 36.8
--- NOTE | 2025-06-06 13:49 | XR_ITS ---
Examination: Biophysical profile, ultrasound Date and time of exam: June 06, 2025, 1406 hours INDICATIONS: Diagnosis high risk , diagnosis gestational diabetes Technique: Multiple transabdominal sonographic images of the pelvis abdomen obtained. Attention is directed to the breathing movement, gross body movement, amniotic fluid volume and tone. Findings: Amniotic fluid index 18.5 cm Total biophysical profile is 8 of 8. breathing movement is 2. Gross body movement is 2. tone is 2. Qualitative amniotic fluid volume is 2 Impression: Biophysical profile is 8 of 8.
[2025-06-06 15:03] VITALS: BP 124/84; PULSE 87; RESP 17
--- NOTE | 2025-06-09 13:58 | XR_ITS ---
Examination: Biophysical profile, ultrasound Date and time of exam: June 09, 2025, 1403 hours INDICATIONS: Gestational diabetes, diagnosis high risk Technique: Multiple transabdominal sonographic images of the pelvis abdomen obtained. Attention is directed to the breathing movement, gross body movement, amniotic fluid volume and tone. Findings: Amniotic fluid index 16.8 cm Total biophysical profile is 8 of 8. breathing movement is 2. Gross body movement is 2. tone is 2. Qualitative amniotic fluid volume is 2 Impression: Biophysical profile is 8 of 8.
[2025-06-09 14:50] VITALS: BP 120/82; PULSE 81; RESP 16
--- NOTE | 2025-06-13 14:08 | XR_ITS ---
Examination: Biophysical profile, ultrasound Date and time of exam: June 08, 2025, 1415 hours INDICATIONS: Diagnosis gestational diabetes, diagnosis high risk Technique: Multiple transabdominal sonographic images of the pelvis abdomen obtained. Attention is directed to the breathing movement, gross body movement, amniotic fluid volume and tone. Findings: Amniotic fluid index in the normal range Total biophysical profile is 8 of 8. breathing movement is 2. Gross body movement is 2. tone is 2. Qualitative amniotic fluid volume is 2 Impression: Biophysical profile is 8 of 8.
[2025-06-13 14:54] VITALS: BP 121/71; PULSE 103; RESP 16; TEMP 36.9
--- NOTE | 2025-06-16 14:06 | XR_ITS ---
Examination: Biophysical profile, ultrasound Date and time of exam: June 16, 2025, 1405 hours INDICATIONS: Diagnosis high risk secondary to gestational diabetes Technique: Multiple transabdominal sonographic images of the pelvis abdomen obtained. Attention is directed to the breathing movement, gross body movement, amniotic fluid volume and tone. Findings: Amniotic fluid index 5.5 cm Total biophysical profile is 8 of 8. breathing movement is 2. Gross body movement is 2. tone is 2. Qualitative amniotic fluid volume is 2 Impression: Biophysical profile is 8 of 8.
[2025-06-16 14:49] VITALS: BP 126/71; PULSE 87; RESP 16; TEMP 36.9
--- NOTE | 2025-06-20 14:21 | XR_ITS ---
Examination: Biophysical profile, ultrasound Date and time of exam: 06/20/2025, 2:35 p.m. COMPARISON: Ultrasound 06/16/2025 INDICATION: Weekly NST and BPP due to GDM Technique: Multiple transabdominal sonographic images of the pelvis abdomen obtained. Attention is directed to the breathing movement, gross body movement, amniotic fluid volume and tone. Findings: Single IUP in cephalic position Total biophysical profile is 8 of 8. breathing movement is 2. Gross body movement is 2. tone is 2. Qualitative amniotic fluid volume is 2 RAMILA: 141 cm. FHR: 136 bpm. Impression: Biophysical profile is 8 of 8.
[2025-06-20 15:02] VITALS: BP 130/80; PULSE 75; RESP 16; TEMP 36.7
== END 2025-06-20 23:59 | disposition home or self-care (01) ==
LOC: S4S1 14:01
PROVIDERS: Referring Provider Obstetrics & Gynecology; Visit Provider Obstetrics & Gynecology
DX: O09.93 Supervision of high risk pregnancy, unspecified, third trimester (principal); Z3A.39 39 weeks gestation of pregnancy
CPT/HCPCS: 59025; 76819

== ENCOUNTER 2025-06-21 10:05 | Inpatient (IN) | payer MEDICAID, SELFPAY ==
[2025-06-21] VITALS (14 sets, daily range): BP systolic 104–134; BP diastolic 61–89; PULSE 71–103; RESP 12–19; TEMP 36.4–36.7; O2SAT 96–100; BMI 40.0
--- NOTE | 2025-06-21 08:43 | ESHP_ITS ---
Documentation for date of: 06/21/25 OB Labor/Induct. HPI History of Present Illness Chief complaint: Scheduled repeat : 2 Para: 1 Term pregnancies: 0 pregnancies: 0 Living children: 1 History of Abortions: Spontaneous and Elective: 0 History of sections: No History of : No DEENA: 06/25/25 Gestational Age (weeks): 39 Gestational Age (days): 3 History of present illness: is a 30-year-old 2 para 1 at 39 weeks and 3 days who is presenting for her scheduled repeat low-transverse . Patient denies any contractions or leakage of fluid or vaginal bleeding and reports adequate movements. Of note she has a prior history of congestive heart failure after her labor/C- section in August 2023 for which she had a prolonged hospital stay including ICU. 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 labs are as follows - Date: 11/19/2024 - Hepatitis B: Negative - Hepatitis C: Negative - RPR: Non-reactive - Rubella: Immune - Blood group: O-positive - Antibody screen: Negative - HIV: Negative - Gonorrhea: Negative - Chlamydia: Negative Past Medical History Surgical History SURGICAL: Negative Section Meds Home Medications and Allergies Allergies Allergy/AdvReac Type Severity Reaction Status Date / Time No Known Allergies Allergy Verified 06/21/25 10:17 OB Exam Constitutional Constitutional: no acute distress Routine HEENT Exam Head: Present normocephalic and atraumatic Eye: Present EOMI and PERRL ENT: Present mucous membranes moist Routine Neck Exam Neck: Present supple and trachea midline Routine Cardiovascular Exam Cardiovascular: Present RRR Routine Abdominal Exam Abdominal: Present soft and normoactive bowel sounds Detailed Labor and Delivery Exam Dilation (cm): 0 Effacement (%): 0 Cervix position: posterior station: -4 Consistency: firm Presentation: Vertex Baseline heart rate: 145 monitor accelerations: 15x15 monitor decelerations: None Routine Extremities Exam Extremities: Present full ROM Routine Skin Exam Skin: Present intact, dry and warm Routine Neurological Exam Neurological: Present alert, oriented X3 and CN II-XII intact Routine Psychiatric Exam Psychiatric: Present normal affect and normal thought process OB Results Labs 06/21/25 10:35 OB Assessment & Plan Assessment and Plan (1) Gestational diabetes mellitus: Status: Acute (2) History of poor outcome: Status: Acute (3) Maternal care for low transverse scar from previous delivery: Status: Acute Assessment and plan: Admit to inpatient status for repeat low transverse IV access, CBC, type and screen, LR at 125, RPR, COVID-19 test GBS negative Ancef 2 g prior to surgery start Ramirez catheter to drainage SCDs for DVT prophylaxis Anesthesia to preop for spinal anesthesia Scheduled for surgery.
[2025-06-21] MEDS: RINGERS LACTATED 1000 ML 1,000 ML 100 ML IV (10:35)
[2025-06-21 10:58] LABS: Basophils # (Auto) 0.0 Thou/mm3 (0.0-0.2); Basophils % (Auto) 0 % (0-2.5); Eosinophils # (Auto) 0.0 Thou/mm3 (0.0-0.5); Eosinophils % (Auto) 1 % (0-10); Hematocrit 36.2 % (36.0-46.0); Hemoglobin 12.1 g/dL (12.0-16.0); Immature Granulocytes Auto 0.02 Thou/mm3 (0.00-0.00); Lymphocytes # (Auto) 1.5 Thou/mm3 (1.0-4.8); Lymphocytes % (Auto) 19 % (10-50); Mean Corpuscular HGB Conc 33.4 g/dl (31.0-37.0); Mean Corpuscular Hemoglobin 29.6 pg (25.0-35.0); Mean Corpuscular Volume 89 fL (80-100); Monocytes # (Auto) 0.4 Thou/mm3 (0.0-0.8); Monocytes % (Auto) 6 % (0-12); Neutrophils # (Auto) 5.5 Thou/mm3 (1.8-7.7); Neutrophils % (Auto) 74 % (37-80); Nucleated Red Blood Cell # 0.00 Thou/mm3 (0.00-0.00); Nucleated Red Blood Cell % 0 /100 WBC (0); Platelet Count 174 Thou/mm3 (140-440); RDW Standard Deviation 46.0 fL (36.4-46.3); Red Blood Count 4.09 Miln/mm3 (4.00-5.20); White Blood Count 7.5 Thou/mm3 (3.6-11.0)
[2025-06-21] MEDS: CITRIC ACID/SODIUM CITR 15 ML UDC (BICITRA) 30 ML PO (12:23)
[2025-06-21] MEDS: FAMOTIDINE INJ 10 MG/ML VIAL 2 ML 20 MG IV (12:23)
[2025-06-21] MEDS: ceFAZolin/D5W 2 GM IV 2 GM/100 ML BAG IV (12:23)
[2025-06-21 12:48] LABS: Syphilis Nonreactive (Nonreactive)
--- NOTE | 2025-06-21 13:19 | PD.GYNPROC ---
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 Identity was confirmed by double identifiers and she was placed on the operating table.? Spinal anesthesia was administered and she was positioned in the supine position.? The abdomen and perineum were prepped in the usual sterile fashion and a Ramirez catheter was placed to continuous drainage.? Sterile drapes were applied.? The incision site was tested for adequacy of anesthesia.? A Pfannenstiel skin incision was made with a scalpel and carried to the subcutaneous fat up to the rectus fascia.? The rectus fascia was incised on either side of the midline and the incisions were extended bilaterally.? The fascia was gently dissected off the ventral surface of the rectus muscle both superiorly and inferiorly.? The rectus bellies were gently in the midline and the peritoneum was identified and entered bluntly using the surgeon's finger.? The peritoneal opening was now stretched to create an adequate opening for access to the uterus.? Jono O-ring retractor was placed for adequate visualization.? The anterior surface of the uterus was palpated.? The bladder reflection was identified and a Phan Del Real low transverse uterine incision was made in the lower uterine segment taking care to avoid the bladder.? Uterine entry was accomplished bluntly and the opening was stretched to create adequate room.? The amniotic membranes were now ruptured and clear amniotic fluid was released.? The fetus was noted to be in the vertex position.? The head was gently elevated out of the maternal pelvis and the rest of the shoulders and body were delivered by gentle fundal pressure.? Umbilical cord was doubly clamped, divided and the infant was handed over to the waiting team.? Cord gas samples were obtained.? The placenta was delivered by gentle traction on the umbilical cord.? The interior of the uterus was now thoroughly cleaned of all blood and debris and membranes.? The hysterotomy angles were grasped by a pair of Allis clamps and the hysterotomy was closed using 1 Monocryl suture in 2 layers.? The first layer was used to approximate the muscle in a running locked fashion, the second layer was used to approximate the thickness of the myometrium?and uterine serosa in an imbricated manner.? Once the repair was completed the hysterotomy was inspected and noted to be adequately hemostatic.?? The hysterotomy was once again inspected and hemostasis was noted to be satisfactory.? The Jono retractor was now removed.? The peritoneal edges were re approximated.? The rectus muscles were re approximated.? The rectus fascia was now repaired using 0 Vicryl suture in a running fashion.? The subcutaneous layer was now copiously irrigated using warm normal saline.? All bleeding points were cauterized using the Bovie.? The subcutaneous fat was closed using 2-0 Plain gut.? The skin was closed using 4-0 Monocryl in a subcuticular fashion.? The skin was cleaned and a sterile dressing was applied.? The patient was now undraped, the abdomen and back were thoroughly cleaned and she was transferred to the recovery room in a stable and awake condition.? The patient tolerated the entire procedure well.? No complications were encountered.? All instrument, sponge and lap counts were correct x2. Specimen: none Estimated blood loss (ml): 700 Complications: none Surgical staff Operation Date: 06/21/25 12:45 <No data on this case meets the specified criteria> Diagnosis Discharge Diagnosis (1) Gestational diabetes mellitus: Status: Acute (2) Maternal care for low transverse scar from previous delivery: Status: Acute (3) delivery delivered: Status: Acute Problem List Completed Was Problem List Reviewed/Reconciled?: Yes
--- NOTE | 2025-06-21 13:23 | PD.LDDELS ---
Data (Robbins) Data Hx Section: No : 2 Term: 0 : 0 Livin Abortions: Spontaneous & Theraputic: 0 Delivery Data (Robbins) Labor Data Induction/Augmentation Agent: None ROM date: 06/21/25 ROM time: 12:58 Amniotic membrane rupture type: Artificial Amniotic fluid description: Clear Delivery Data [place] delivery date: 06/21/25 delivery time: 12:58 Placenta delivery date: 06/21/25 Placenta delivery time: 12:59 Delivered by: TOPHER COLLINS Delivery nurse: BEBE MACIAS RN [place] nurse: MG ALLEN RN Journalism Professor at delivery: Yes (CESAR COLLINS) Support person(s) at delivery: FOB Delivery Method Delivery method: Low Transverse Presentation: Vertex Anesthesia Type Anesthesia Type: None Anesthesia type: Spinal Placenta Placenta delivery description: Manual Removal Cord blood sent to lab: No cord blood collection: Cord Blood Type Episiotomy Episiotomy description: None Umbilical Cord cord description: 3 Vessels [place] Data (Robbins) [place] Data order: 1 's gender: Female weight (gms): 3450 g Weight (pounds): 7 lbs and 9.7 ozs 1 minute: 8 5 minutes: 9
[2025-06-21] MEDS: KETOROLAC INJ 30 MG/ML VIAL IVP (19:12)
[2025-06-21] MEDS: OXYTOCIN in NS 20 units 20 UNIT/1,000 ML BAG 125 UNIT IV (21:00)
[2025-06-22 00:19] VITALS: BP 119/69; PULSE 67; RESP 16; TEMP 36.8; O2SAT 98
--- NOTE | 2025-06-22 01:25 | PC.NURSE ---
Notify MD Tariq of pt's urine output. MD Tariq ordered x1 bolus of 500ml LR and the muniz to be removed in the morning.
[2025-06-22] MEDS: RINGERS LACTATED 500 ML 500 ML 999 ML IV (01:38)
[2025-06-22] MEDS: KETOROLAC INJ 30 MG/ML VIAL IVP ×2 (01:47→08:00)
[2025-06-22 04:00] VITALS: BP 114/73; PULSE 62; RESP 18; TEMP 36.5; O2SAT 98
[2025-06-22 05:53] LABS: Basophils # (Auto) 0.0 Thou/mm3 (0.0-0.2); Basophils % (Auto) 0 % (0-2.5); Eosinophils # (Auto) 0.0 Thou/mm3 (0.0-0.5); Eosinophils % (Auto) 0 % (0-10); Hematocrit 27.7 % (36.0-46.0); Hemoglobin 9.3 g/dL (12.0-16.0); Immature Granulocytes Auto 0.04 Thou/mm3 (0.00-0.00); Lymphocytes # (Auto) 1.8 Thou/mm3 (1.0-4.8); Lymphocytes % (Auto) 21 % (10-50); Mean Corpuscular HGB Conc 33.6 g/dl (31.0-37.0); Mean Corpuscular Hemoglobin 30.3 pg (25.0-35.0); Mean Corpuscular Volume 90 fL (80-100); Monocytes # (Auto) 0.7 Thou/mm3 (0.0-0.8); Monocytes % (Auto) 8 % (0-12); Neutrophils # (Auto) 6.1 Thou/mm3 (1.8-7.7); Neutrophils % (Auto) 70 % (37-80); Nucleated Red Blood Cell # 0.00 Thou/mm3 (0.00-0.00); Nucleated Red Blood Cell % 0 /100 WBC (0); Platelet Count 139 Thou/mm3 (140-440); RDW Standard Deviation 47.3 fL (36.4-46.3); Red Blood Count 3.07 Miln/mm3 (4.00-5.20); White Blood Count 8.7 Thou/mm3 (3.6-11.0)
[2025-06-22] MEDS: RINGERS LACTATED 1000 ML 1,000 ML 125 ML IV (05:59)
[2025-06-22] MEDS: DOCUSATE SOD 100 MG CAPSULE PO (08:00)
[2025-06-22 09:00] VITALS: BP 124/75; PULSE 74; RESP 17; TEMP 36.8; O2SAT 97
--- NOTE | 2025-06-22 11:07 | CHAP ---
Gave a blessing on and family.
[2025-06-22 12:30] VITALS: BP 129/85; PULSE 90; RESP 17; TEMP 36.8; O2SAT 100
[2025-06-22] MEDS: HYDROcodone/APAP 5/325 TABLET 1 TAB PO (19:22)
[2025-06-22 20:15] VITALS: BP 120/73; PULSE 97; RESP 16; TEMP 36.5; O2SAT 97
--- NOTE | 2025-06-22 21:32 | ESPR_ITS ---
Subjective Subjective Interval history: The patient is a 30-year-old -0-0-2 status post repeat low-transverse section 06/21/2025 at around noon by Dr. Tariq. Patient is resting comfortably in bed this evening. The father of the baby is at bedside as is her baby daughter. She is denying chest pain or shortness of breath. She is up ambulating voiding tolerating a general diet and passing flatus. She states she feels a little constipated and has had 1 stool softener so far but no bowel movement her bleeding is minimal. After her last delivery about 2 years ago patient did have chest pain and some type of heart failure she has been followed with a website programmer this patient feels fine today. Her predelivery hemoglobin is 12 today her hemoglobin is 9.3 Exam Vital Signs Temp Pulse Resp BP Pulse Ox O2 Del Method 98.2 F 90 17 129/85 H 100 Room Air 06/22/25 12:30 06/22/25 12:30 06/22/25 12:30 06/22/25 12:30 06/22/25 12:30 06/22/25 12:30 Narrative Exam Patient is normo tensive and her pulse ox is 100% on room air resting patient is resting comfortably no apparent distress comfortably in no apparent distress. Answers questions appropriately. Abdomen is obese incision clean dry and intact extremities show no significant edema or erythema Objective Labs 06/22/25 04:39 Labs: Laboratory Results - last 24 hr 06/22/25 04:39 WBC 8.7 RBC 3.07 L Hgb 9.3 L D Hct 27.7 L MCV 90 MCH 30.3 MCHC 33.6 RDW Std Deviation 47.3 H Plt Count 139 L D Neut % (Auto) 70 Lymph % (Auto) 21 [place] % (Auto) 8 Eos % (Auto) 0 Baso % (Auto) 0 Neut # (Auto) 6.1 Lymph # (Auto) 1.8 [place] # (Auto) 0.7 Eos # (Auto) 0.0 Baso # (Auto) 0.0 Immature Gran # (Auto) 0.04 H Absolute Nucleated RBC 0.00 Immature Gran % 1 H Nucleated RBC % 0 Assessment & Plan Problem List (1) Gestational diabetes mellitus: Problem details: Continue insulin doses Status: Acute (2) Maternal care for low transverse scar from previous delivery: Problem details: Ambulate stool softener as needed probable discharge in the morning Status: Acute (3) delivery delivered: Status: Acute Time Spent With Patient Time: Total time spent is greater than 50% in coordination of care (as documented) at patient's floor/unit and/or counseling patient: Time with patient: less than 15 minutes
[2025-06-22] MEDS: IBUPROFEN TAB 400 MG TABLET 800 MG PO (22:41)
[2025-06-23 04:02] VITALS: BP 112/74; PULSE 87; RESP 14; TEMP 36.7; O2SAT 97
[2025-06-23] MEDS: HYDROcodone/APAP 5/325 TABLET 1 TAB PO (05:14)
[2025-06-23 06:35] LABS: Basophils # (Auto) 0.0 Thou/mm3 (0.0-0.2); Basophils % (Auto) 0 % (0-2.5); Eosinophils # (Auto) 0.1 Thou/mm3 (0.0-0.5); Eosinophils % (Auto) 1 % (0-10); Hematocrit 27.5 % (36.0-46.0); Hemoglobin 9.2 g/dL (12.0-16.0); Immature Granulocytes Auto 0.03 Thou/mm3 (0.00-0.00); Lymphocytes # (Auto) 2.2 Thou/mm3 (1.0-4.8); Lymphocytes % (Auto) 26 % (10-50); Mean Corpuscular HGB Conc 33.5 g/dl (31.0-37.0); Mean Corpuscular Hemoglobin 30.3 pg (25.0-35.0); Mean Corpuscular Volume 91 fL (80-100); Monocytes # (Auto) 0.7 Thou/mm3 (0.0-0.8); Monocytes % (Auto) 8 % (0-12); Neutrophils # (Auto) 5.5 Thou/mm3 (1.8-7.7); Neutrophils % (Auto) 64 % (37-80); Nucleated Red Blood Cell # 0.00 Thou/mm3 (0.00-0.00); Nucleated Red Blood Cell % 0 /100 WBC (0); Platelet Count 162 Thou/mm3 (140-440); RDW Standard Deviation 48.1 fL (36.4-46.3); Red Blood Count 3.04 Miln/mm3 (4.00-5.20); White Blood Count 8.6 Thou/mm3 (3.6-11.0)
--- NOTE | 2025-06-23 08:12 | PD.LDPPPRG ---
Subjective Subjective Interval history: Patient is a 30-year-old -0-0-2 postop day #2 status post scheduled elective repeat section 06/21/[address] Tariq. She has a history of heart failure after her last delivery and has been followed by a shield operator this . This morning, she is resting comfortably. She states her pain is controlled. She is voiding, ambulating, passing flatus, having bowel movements. Her predelivery hemoglobin was 12.1. Her postdelivery hemoglobin, which has been checked twice, is stable at 9.2. Patient would like to be discharged home. She denies any heavy bleeding headaches chest pain or shortness of breath. Exam Vital Signs Temp Pulse Resp BP Pulse Ox O2 Del Method 98.0 F 87 14 112/74 97 Room Air 06/23/25 04:02 06/23/25 04:02 06/23/25 04:02 06/23/25 04:02 06/23/25 04:02 06/23/25 04:02 Narrative Exam Patient is alert and oriented x 3 in no apparent distress. Fundus is firm nontender, abdomen is obese Incision is clean dry and intact. Objective Labs 06/23/25 04:34 Labs: Laboratory Results - last 24 hr 06/23/25 04:34 WBC 8.6 RBC 3.04 L Hgb 9.2 L Hct 27.5 L MCV 91 MCH 30.3 MCHC 33.5 RDW Std Deviation 48.1 H Plt Count 162 Neut % (Auto) 64 Lymph % (Auto) 26 Gaston % (Auto) 8 Eos % (Auto) 1 Baso % (Auto) 0 Neut # (Auto) 5.5 Lymph # (Auto) 2.2 Gaston # (Auto) 0.7 Eos # (Auto) 0.1 Baso # (Auto) 0.0 Immature Gran # (Auto) 0.03 H Absolute Nucleated RBC 0.00 Immature Gran % 0 Nucleated RBC % 0 Assessment & Plan Problem List (1) Gestational diabetes mellitus: Problem details: Continue insulin doses Status: Acute (2) Maternal care for low transverse scar from previous delivery: Problem details: Ambulate stool softener as needed probable discharge in the morning Status: Acute (3) delivery delivered: Problem details: Discharge instructions given. Status: Acute (4) Morbid obesity with BMI of 40.0-44.9, adult: Problem details: Home on Lovenox. Status: Acute Time Spent With Patient Time: Total time spent is greater than 50% in coordination of care (as documented) at patient's floor/unit and/or counseling patient: Time with patient: less than 15 minutes
--- NOTE | 2025-06-23 08:18 | ESDS_ITS ---
DS: Providers Provider Date of admission: 06/21/25 10:05 Primary care physician: Elias Harris MD Admitting Provider: Todd Tariq MD Attending Provider on Admission: Todd Tariq MD Consults: 06/21/25 14:38 Referral Routine Comment: Attending Provider on DC: [facility]ana [facility] ([facility]) Discharging Provider: Briana Lopez MD ([facility]) Anticipated date of discharge: 06/23/25 DS: Diagnosis Discharge Diagnosis (1) Morbid obesity with BMI of 40.0-44.9, adult: Status: Acute Assessment & Plan: Home on Lovenox (2) Maternal care for low transverse scar from previous delivery: Status: Acute Assessment & Plan: Discharge instructions given, follow-up in 1 to 2 weeks. (3) Gestational diabetes mellitus: Status: Acute Assessment & Plan: Continue gestational diabetic diet. Recommend weight loss Problem List Completed Was Problem List Reviewed/Reconciled?: Yes Summary/Hosp Course Brief History: is a 30-year-old 2 para 1 at 39 weeks and 3 days who is presenting for her scheduled repeat low-transverse . Patient denies any contractions or leakage of fluid or vaginal bleeding and reports adequate movements. Of note she has a prior history of congestive heart failure after her labor/ in August 2023 for which she had a prolonged hospital stay including ICU. Patient has recently seen the medical records field technician and her cardiac workup has been within normal limits. labs are as follows - Date: 11/19/2024 - Hepatitis B: Negative - Hepatitis C: Negative - RPR: Non-reactive - Rubella: Immune - Blood group: O-positive - Antibody screen: Negative - HIV: Negative - Gonorrhea: Negative - Chlamydia: Negative See history and physical for further details. Patient was admitted, and underwent an uncomplicated repeat low-transverse section by Dr. Tariq around noon on 06/21/2025. Please see op report for further details. Patient's postop course was uncomplicated. Patient's predelivery hemoglobin was 12.1. Her postop hemoglobin was checked 2 days in a row and is stable at 9.2. She was discharged home postoperative day #2 in stable condition. Discharge instructions including no heavy lifting intercourse tampons or douching exercise bathtubs x 6 weeks. Follow-up in 1 to 2 weeks at the clinic. Peripartum Data Delivery Method: Low Transverse Episiotomy Description: None Procedures: Procedures Operation Date: 06/21/25 12:45 Actual Procedure Side Surgeon p in OB Not Applicable Todd Tariq MD complications: none Status at Discharge Cognitive/behavioral status at discharge: Patient is alert and orient x 3 in no apparent distress Functional status at discharge: independent ambulation Overall status at discharge: patient is progressing back to baseline Time Spent with Patient Time attestation: Total time spent providing and/or coordinating discharge services: Time spent: Less than 30 minutes Specific discharge activities: Pelvic rest x 6 weeks. No heavy lifting intercourse tampons or douching x 6 weeks. Return to the ER with heavy bleeding, depression or shortness of breath or chest pain. Follow-up in 1 to 2 weeks in the clinic Exam Vital Signs Temp Pulse Resp BP Pulse Ox O2 Del Method 98.0 F 87 14 112/74 97 Room Air 06/23/25 04:02 06/23/25 04:02 06/23/25 04:02 06/23/25 04:02 06/23/25 04:02 06/23/25 04:02 Narrative Exam Patient is alert and orient x 3 in no apparent distress. Abdomen is obese. Fundus is firm. Incision is clean dry and intact. Extremities show no significant edema or erythema. Discharge Plan Plan Patient Disposition: HOME (Self Care) Disposition Comment: Stable Patient condition on transfer: Stable Prescriptions/Referrals Prescriptions/Med Rec: New acetaminophen 325 mg Tablet 650 mg PO Q6HR PRN (Reason: Patient rated pain of 3) Qty: 60 0RF hydrocodone-acetaminophen 5-325 mg Tablet 2 tab PO Q6HR MDD 4 PRN (Reason: Patient rated pain 9 to 10) Qty: 25 0RF ibuprofen 400 mg Tablet 800 mg PO Q8HR PRN (Reason: Pain Scale 4-6 (Moderate) Qty: 60 0RF docusate sodium 100 mg Capsule 100 mg PO QDAY Qty: 60 0RF enoxaparin [Lovenox] 40 mg/0.4 mL syringe 40 mg subcut Q24H Qty: 4 4RF Continued Prenate Enhance 28 mg iron- 1 mg-400 mg capsule 1 cap PO QDAY 90 Days Qty: 90 2RF Discontinued (DME) Blood Glucose Test Strip See Rx Instructions .MEDSUPPLY Qty: 100 0RF Rx Instructions: As directed, 4 times a day (DME) blood-glucose meter Kit See Rx Instructions .MEDSUPPLY Qty: 1 0RF Rx Instructions: As directed, 4 times a day (DME) lancets 21 gauge misc See Rx Instructions .MEDSUPPLY Qty: 100 0RF Rx Instructions: As directed, 4 times a day (DME) FreeStyle Test Strip See Rx Instructions .Route Qty: 100 0RF Rx Instructions: As directed, 4 times a day Referrals: Elias Harris MD [Primary Care Provider, Family Practice] Patient/Caregiver Discharge Instructions Discharge Activity: activity as tolerated Education Materials: After Delivery Concerns, After a , C Section Dc Print Language: Austrian Activity Restrictions/Additional Instructions: No heavy lifting, intercourse, tampons, douching, heavy exercise x 6 weeks. Call with chest pain, heavy vaginal bleeding or severe depression. Follow-up in 1 to 2 weeks. Stand Alone Forms: Ludmila Award Info., Patient Portal Info Letter Discharge Order Discharge Orders: Discharge (Routine); Ordered 06/23/25 Ordered By: Briana Lopez ([facility]) Planned Discharge Date 06/23/25 (3) Gestational diabetes mellitus Qualifiers: Gestational diabetes mellitus control: diet-controlled Trimester: third trimester Qualified Code(s): O24.410 - Gestational diabetes mellitus in , diet controlled
[2025-06-23 08:40] VITALS: BP 127/86; PULSE 85; RESP 18; TEMP 36.6; O2SAT 98
[2025-06-23] MEDS: IBUPROFEN TAB 400 MG TABLET 800 MG PO (10:04)
== END 2025-06-23 15:20 | disposition home or self-care (01) | DRG 540 ==
LOC: S4SX 10:07 → S4NX 12:39
PROVIDERS: Obstetrics & Gynecology; Admitting Provider Obstetrics & Gynecology; PCP Family Medicine; Visit Provider Obstetrics & Gynecology
PROC: 10D00Z1 Extraction of Products of Conception, Low, Open Approach (ICD-10-PCS; CPT 59514; principal; 2025-06-21 12:30)
DX: O34.211 Maternal care for low transverse scar from previous cesarean delivery (principal); Z37.0 Single live birth; Z3A.39 39 weeks gestation of pregnancy; O24.420 Gestational diabetes mellitus in childbirth, diet controlled; O99.214 Obesity complicating childbirth; E66.01 Morbid (severe) obesity due to excess calories; I25.2 Old myocardial infarction
CPT/HCPCS: 36415; 85025; 86780; 86850; 86900; 86901; A4217; A4314; A4649; J0689; J1885; J1938; J2274; J2371; J2405; J2590; J3010; J3490; J7120; A9270; J1596; J2270

== ENCOUNTER 2025-07-06 08:56 | Outpatient (AMB) | payer MEDICAID, SELFPAY ==
--- NOTE | 2025-07-06 09:05 | AMB.OBPP ---
Vital Signs 07/06/25 09:06 Height 1.55 m Height Method Stated Weight 89.584 kg Weight Measurement Method Standing Scale BMI 37.3 BP 138/93 H Blood Pressure Source Automatic Cuff Blood Pressure Location Right Upper Arm Position Sitting Respiration 18 Pulse 70 Pulse Source Monitor Temp 97.5 F Temp Source Temporal Artery Scan Pulse Oximetry (%) 98 Oxygen Delivery Method Room Air Allergies/Home Meds Allergies & Medications Allergies No Known Allergies Allergy (Verified 07/06/25 09:06) Intake Visit Data Collection New Patient or Established: Established Patient (seen at [facility] within 3 years) Reason for Visit:: CSECTION PP Seen by Clinical Staff ONLY (RN/MA): No Alternative Medicine Practitioner Required: No Do You Feel Safe at Home: Yes Authorities Contacted: N/A PCP or OBGYN visit in last 3 months: Yes Date of Last PCP or OBGYN visit: 06/01/25 Hx Now: No Are you currently on any form of Control: No Pain Present Currently: No Pain Scale Used: [place]/Numerical Pain scale:: 0 Smoking Status Smoking Status: Never smoker Immunizations Flu Vaccine in the Last 12 Months: No Flu Vaccine Exclusion Criteria: No Exclusion Criteria 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 HYDRAULIC: Past Medical History Past Medical History: No Hx Neurological Disorders, No Hx Breast Cancer, Yes Hx Cardiac Disorders (HX NSTEMI DUE TO FLUID OVERLOAD), No Hx Cancer, No Hx Blood Disorders, No Hx Gastrointestinal Disorders, No Hx Renal Disease, No Hx Diabetes Mellitus Type 1, No Hx Diabetes Mellitus Type 2, No Hx Tubal Ligation and No Hx Hysterectomy Questionnaires Covid-19 Vaccine Questionnaire Has patient been vacinated for Covid-19 Have you been vacinated for Covid-19: No Social History Living Situation History Marital Status: Life Partner Lives With: Family Housing: House Housing Other:: pt lives with mom Tobacco History Smoking Status: Never smoker Second Hand Smoke Exposure: No Alcohol History Alcohol Intake: Never Alcohol Intake Frequency: holidays/special occasions only Domestic Abuse History Do You Feel Safe at Home: Yes EPDS - PP Depression Screening Ray Pospartum Depression Screen I have been able to laugh and see the funny side of things: (0) As much as I always could I have looked forward with enjoyment to things: (0) As much as I ever did I have blamed myself unnecessarily when things went wrong: (0) No, never I have been anxious or worried for no good reason: (0) No, not at all I have felt scared or panicky for no very good reason: (0) No, not at all Things have been getting on top of me: (0) No, I have been coping as well as ever I have been so unhappy that I have had difficulty sleeping: (0) No, not at all I have felt sad or miserable: (0) No, not at all I have been so unhappy that I have been crying: (0) No, never The thought of harming myself has occurred to me: (0) Never EPDS completed yes HPI Interval History: Judy Veloz presents for a postoperative follow-up visit approximately 2 weeks after surgery performed on June 21. The patient reports that this visit went much better than her last visit. She has surgical tape still in place from her procedure. The patient has a baby who is doing well and is bottle feeding rather than . The baby is under the care of Dr. Forte for pediatric care. The patient denies any specific complaints or concerns at this visit. She has a history of section on June 21, 2025. The patient notes that she is currently bottle feeding her . She is a female with an obstetric history of G1 T1 L1. Her recent delivery was via section on June 21, 2025. ROS: Negative except as stated above, limited to MANAGER HYDRAULIC and pertinent complaints. Exam Narrative Physical exam: - Skin: Surgical site appears good with tape removed. General General Appearance: alert, in no apparent distress and healthy appearing Head Head exam: atraumatic Neck Neck exam: Present normal inspection and trachea midline Chest Chest inspection: Present normal inspection and symmetric chest wall rise External exam: Present normal external exam; Absent tenderness Neuro Neurological exam: Present oriented X3 Psych Psychiatric exam: Present normal affect and normal mood Office Procedures [facility] Clinic LOC & Office Proc's Nursing/Assessment Patient Status: Established Patient [facility] Clinic Nursing Assessment: Medication Reconciliation, Update PMH in EMR and Vital Signs OB Clinic Coordination of Care: Complex Care and Chronic Disease 1-5, Education Complex Pt/Fam, Consent,records obtained, informed consent, Lab and Imaging orders, Results/Orders obtained and Staff clarify orders Established Patient Charge Established Patient Point Assignment: 110 Established Patient Point Charge: EP Level 3 (80-115) Antepartum Initial or Follow-up Antepartum Initial Visit: Yes Assessment & Plan Diagnosis / Problem List (1) Encounter for routine follow-up: Status: Acute Plan Postoperative Follow-up: - Patient is approximately 2 weeks post-surgery (performed on June 21). - Surgical site healing well with tape removed during this visit. - Good recovery progress compared to previous visit. Plan: - Lift most activity restrictions given good healing at 2 weeks post-surgery. - May drive and go to store. - May lift up to 20 pounds. - Continue restrictions: no sexual activity and no lifting more than 20 pounds. - Avoid heavy activities including pushing furniture and vacuuming for another 2 weeks. - Follow-up appointment scheduled at 8 weeks postoperatively. - Discuss control options at next visit. - Patient to research control preferences prior to next appointment. Care: - Baby doing well on bottle feeding. - Pediatric care established with Dr. Forte. Plan: - Continue current feeding regimen with bottle feeding. - Continue pediatric follow-up with Dr. Forte.
[2025-07-06 09:06] VITALS: BP 138/93; PULSE 70; RESP 18; TEMP 36.4; O2SAT 98; BMI 37.3
== END 2025-07-06 09:13 | disposition home or self-care (01) ==
LOC: HODSOBC 08:56
PROVIDERS: PCP Family Medicine; Referring Provider Family Medicine; Supervising Provider Obstetrics & Gynecology; Visit Provider Obstetrics & Gynecology
DX: Z39.2 Encounter for routine postpartum follow-up (principal)
CPT/HCPCS: 59425; 99213; G0463

== ENCOUNTER 2025-08-15 09:20 | Outpatient (AMB) | payer MEDICAID, SELFPAY ==
[2025-08-15 09:39] VITALS: BP 127/80; PULSE 77; RESP 18; TEMP 36.3; O2SAT 98; BMI 38.3
--- NOTE | 2025-08-15 09:39 | AMB.OBPP ---
Vital Signs 08/15/25 09:39 Height 1.55 m Height Method Stated Weight 92.193 kg Weight Measurement Method Standing Scale BMI 38.3 BP 127/80 Blood Pressure Source Automatic Cuff Blood Pressure Location Right Upper Arm Position Sitting Respiration 18 Pulse 77 Pulse Source Monitor Temp 97.3 F Temp Source Temporal Artery Scan Pulse Oximetry (%) 98 Oxygen Delivery Method Room Air Allergies/Home Meds Allergies & Medications Allergies No Known Allergies Allergy (Verified 08/15/25 09:40) Medication Reconciliation levonorgestrel-ethinyl estradiol 0.1 mg-20 mcg tablet (Lutera (28)) 1 tab PO QDAY 180 days #180 tabs 08/15/25 [Rx] Intake Visit Data Collection New Patient or Established: Established Patient (seen at [facility] within 3 years) Reason for Visit:: 1 MO PP Seen by Clinical Staff ONLY (RN/MA): No Heading Saw Operator Required: No Do You Feel Safe at Home: Yes Authorities Contacted: N/A PCP or OBGYN visit in last 3 months: Yes Date of Last PCP or OBGYN visit: 07/06/25 Hx Now: No Are you currently on any form of Control: No Pain Present Currently: No Pain Scale Used: [place]/Numerical Pain scale:: 0 Smoking Status Smoking Status: Never smoker Immunizations Flu Vaccine in the Last 12 Months: No Flu Vaccine Exclusion Criteria: No Exclusion Criteria 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 AGENT: Past Medical History Past Medical History: No Hx Neurological Disorders, No Hx Breast Cancer, Yes Hx Cardiac Disorders (HX NSTEMI DUE TO FLUID OVERLOAD), No Hx Cancer, No Hx Blood Disorders, No Hx Gastrointestinal Disorders, No Hx Renal Disease, No Hx Diabetes Mellitus Type 1, No Hx Diabetes Mellitus Type 2, No Hx Tubal Ligation and No Hx Hysterectomy Questionnaires Covid-19 Vaccine Questionnaire Has patient been vacinated for Covid-19 Have you been vacinated for Covid-19: No Social History Living Situation History Marital Status: Lives With: Family Housing: House Housing Other:: pt lives with mom Tobacco History Smoking Status: Never smoker Second Hand Smoke Exposure: No Alcohol History Alcohol Intake: Never Alcohol Intake Frequency: holidays/special occasions only Domestic Abuse History Do You Feel Safe at Home: Yes EPDS - PP Depression Screening Hermann Pospartum Depression Screen I have been able to laugh and see the funny side of things: (0) As much as I always could I have looked forward with enjoyment to things: (0) As much as I ever did I have blamed myself unnecessarily when things went wrong: (0) No, never I have been anxious or worried for no good reason: (0) No, not at all I have felt scared or panicky for no very good reason: (0) No, not at all Things have been getting on top of me: (0) No, I have been coping as well as ever I have been so unhappy that I have had difficulty sleeping: (0) No, not at all I have felt sad or miserable: (0) No, not at all I have been so unhappy that I have been crying: (0) No, never The thought of harming myself has occurred to me: (0) Never EPDS completed yes HPI Interval History: Meggan presents for follow-up following section performed on July 12, 2024. She reports appropriate recovery this time without recurrence of cardiac complications from her previous . The patient denies shortness of breath and chest complaints. She reports that her baby is doing well and that she is bottle feeding rather than . She expresses interest in contraception and specifically requests control pills. She has a history of heart failure following her previous but has recovered appropriately from current without recurrence. The patient plans to resume core exercises and physical activity. She is currently bottle feeding her . She is a 30-year-old female with an obstetric history of G2 T1 L2. Her recent delivery was via section on July 12, 2024. ROS: Cardiovascular: Negative for shortness of breath, chest complaints. Exam General General Appearance: alert, in no apparent distress and healthy appearing Head Head exam: atraumatic Neck Neck exam: Present normal inspection and trachea midline Chest Chest inspection: Present normal inspection and symmetric chest wall rise External exam: Present normal external exam; Absent tenderness Neuro Neurological exam: Present oriented X3 Psych Psychiatric exam: Present normal affect and normal mood Office Procedures [facility] LOC & Office Proc's Nursing/Assessment Patient Status: Established Patient [facility] Clinic Nursing Assessment: Medication Reconciliation, Update PMH in EMR and Vital Signs OB Clinic Coordination of Care: Complex Care and Chronic Disease 1-5, Education Complex Pt/Fam, Consent,records obtained, informed consent, Lab and Imaging orders, Results/Orders obtained and Staff clarify orders Established Patient Charge Established Patient Point Assignment: 110 Established Patient Point Charge: EP Level 3 (80-115) Antepartum Initial or Follow-up Antepartum Follow up Visit: Yes Assessment & Plan Diagnosis / Problem List (1) Encounter for initial prescription of contraceptive pills: Status: Acute (2) Encounter for routine follow-up: Status: Acute Plan Status post section: - Patient recovering appropriately from section performed on July 12. - No current complications noted. - Patient denies shortness of breath or chest complaints. Plan: - No activity restrictions. - Core exercises permitted without limitations. - Maintain activity with 15-20 minutes of exercise daily. - Take women's multivitamin daily for bone health and healing. Contraception request: - Patient requests control and is bottle feeding. - Allows for immediate initiation of hormonal contraception without concerns about interactions. Plan: - Prescribe oral contraceptive pills to [facility] pharmacy. - Patient counseled that fertility returns immediately and daily compliance is essential to prevent . - Provided one year of refills. - Patient can start immediately since not . History of heart failure: - Patient had heart failure after previous but has recovered appropriately this time without recurrence. - Current symptoms are absent with no shortness of breath or chest complaints. - Previous episode may have been related to pneumonia rather than true peripartum cardiomyopathy. Plan: - Continue current management. - No additional cardiac monitoring needed at this time.
== END 2025-08-15 10:05 | disposition home or self-care (01) ==
LOC: HODSOBC 09:20
PROVIDERS: Supervising Provider Obstetrics & Gynecology; Visit Provider Obstetrics & Gynecology
DX: Z39.2 Encounter for routine postpartum follow-up (principal); Z30.011 Encounter for initial prescription of contraceptive pills
CPT/HCPCS: 99213; Z1034; G0463